=== PATIENT | female | born 1950 ===

== ENCOUNTER 2017-02-14 09:21 | Day surgery (SDC) | payer BC ==
[~2017-02-14 09:21] MED LIST: Acetaminophen TAB* 325 MG PO PRN; Buffered Lidocaine 1% SYRIN* 3 ML/SYR SYRINGE INTRADERM ONE
[2017-02-14] MEDS ORDERED: Midazolam* 1 MG/ML 2 ML VIAL (2 MG) ONE ×2 (11:26→11:45)
[2017-02-14 12:45] VITALS: BP 120/87
[2017-02-14] MEDS ORDERED: Cyclopentolate 1% OPTH.SOL* 2 ML BTL ONE (13:52)
[2017-02-14] MEDS ORDERED: Phenylephrine 2.5% OPTH.SOL* 2 ML BTL ONE (13:52)
[2017-02-14] MEDS ORDERED: Flurbiprofen 0.03% OPTH.SOL* 2.5 ML BTL ONE (13:52)
[2017-02-14] MEDS ORDERED: acetaZOLAMIDE TAB* 250 MG ONE (13:52)
[2017-02-14] MEDS ORDERED: Povidone Iodine 5% OPTH* 30 ML BTL ONE (13:52)
[2017-02-14] MEDS ORDERED: Lidocaine 1% MPF* 2 ML VIAL ONE (13:52)
[2017-02-14] MEDS ORDERED: Proparacaine 0.5% OPHTH.SOL* 15 ML BTL ONE (13:52)
[2017-02-14] MEDS ORDERED: Neomycin/Polymy/Dex OPTH.SUSP* MAXITROL 0.1% 5 ML ONE (13:52)
[2017-02-14] MEDS ORDERED: Lidocaine 2% EPI 1:200000 MPF* 20 ML VIAL ONE (13:52)
--- NOTE | 2017-02-14 15:50 | OP ---
DATE OF OPERATION: 02/14/2017 - [facility] DATE OF : 1950. SURGEON: Joey Harris M.D. PREOPERATIVE DIAGNOSIS: Cataract right eye. POSTOPERATIVE DIAGNOSIS: Cataract right eye. OPERATIVE PROCEDURE: Phacoemulsification right eye with IOL. DESCRIPTION OF PROCEDURE: The patient was brought to the operating room after being given 1/2% Alcaine with epinephrine drops in the preoperative area. The eye was prepped and draped in the usual sterile fashion. Sterile drape and eyelid speculum were placed. Again, topical 1/2% Alcaine with epinephrine was given. A paracentesis incision was made at the 9 o'clock position with the No.75 blade. Clear cornea incision 2.2 x 2.2-mm was created at the 12 o'clock position starting at the anterior limbus using the 2.2-mm keratome. The anterior chamber was irrigated with 0.4 mL of 1% non-preservative intracameral lidocaine and filled with DisCoVisc. A capsulorrhexis was completed using the cystotome and the Utrata forceps. Hydrodissection was performed with balanced salt solution. The lens nucleus was removed with the Phacoemulsification handpiece without incident. Cortex was removed with the irrigation-aspiration handpiece. The capsular bag was re-inflated using DisCoVisc and an [id number] 22.5 implant was inserted with the shooter. The irrigation-aspiration handpiece was used to remove all residual DisCoVisc. The eye was refilled with balanced salt solution and the wound checked and found to be watertight. Topical Maxitrol drops were given. [id number]/[facility] #: [id number] [facility]
== END 2017-02-14 12:37 | disposition home or self-care (01) ==
LOC: OREAST 09:21
PROVIDERS: ATTEND Specialist
DX: H25.11 Age-related nuclear cataract, right eye (principal); J44.9 Chronic obstructive pulmonary disease, unspecified; K21.9 Gastro-esophageal reflux disease without esophagitis; I10 Essential (primary) hypertension; Z87.891 Personal history of nicotine dependence; E66.9 Obesity, unspecified; Z68.42 Body mass index [BMI] 45.0-49.9, adult; E03.9 Hypothyroidism, unspecified
CPT/HCPCS: A9270-GY; J2250; V2632

== ENCOUNTER 2017-02-21 08:31 | Day surgery (SDC) | payer BC ==
[2017-02-21] MEDS ORDERED: Midazolam* 1 MG/ML 2 ML VIAL (2 MG) ONE (09:58)
[2017-02-21] MEDS ORDERED: fentaNYL* 50 MCG/ML 2 ML VIAL (100 MCG VIAL) ONE (09:58)
[2017-02-21 11:06] VITALS: BP 118/63
[2017-02-21] MEDS ORDERED: Acetaminophen TAB* 325 MG ONE (11:07)
[2017-02-21] MEDS ORDERED: Cyclopentolate 1% OPTH.SOL* 2 ML BTL ONE (12:47)
[2017-02-21] MEDS ORDERED: Lidocaine 1% MPF* 2 ML VIAL ONE (12:47)
[2017-02-21] MEDS ORDERED: Neomycin/Polymy/Dex OPTH.SUSP* MAXITROL 0.1% 5 ML ONE (12:47)
[2017-02-21] MEDS ORDERED: Flurbiprofen 0.03% OPTH.SOL* 2.5 ML BTL ONE (12:47)
[2017-02-21] MEDS ORDERED: Povidone Iodine 5% OPTH* 30 ML BTL ONE (12:47)
[2017-02-21] MEDS ORDERED: Proparacaine 0.5% OPHTH.SOL* 15 ML BTL ONE (12:47)
[2017-02-21] MEDS ORDERED: acetaZOLAMIDE TAB* 250 MG ONE (12:47)
[2017-02-21] MEDS ORDERED: Lidocaine 2% EPI 1:200000 MPF* 20 ML VIAL ONE (12:47)
[2017-02-21] MEDS ORDERED: Phenylephrine 2.5% OPTH.SOL* 2 ML BTL ONE (12:47)
--- NOTE | 2017-02-21 14:05 | OP ---
DATE OF OPERATION: 02/21/17 - [facility] DATE OF : [birth year] SURGEON: Joey Harris M.D. PREOPERATIVE DIAGNOSIS: Cataract, left eye. POSTOPERATIVE DIAGNOSIS: Cataract, left eye. OPERATIVE PROCEDURE: Phacoemulsification left eye with IOL. DESCRIPTION OF PROCEDURE: The patient was brought to the operating room after being given 1/2% Alcaine with epinephrine drops in the preoperative area. The eye was prepped and draped in the usual sterile fashion. Sterile drape and eyelid speculum were placed. Again, topical 1/2% Alcaine with epinephrine was given. A paracentesis incision was made at the 3 o'clock position with the No.75 blade. Clear cornea incision 2.2 x 2.2-mm was created at the 6 o'clock position starting at the anterior limbus using the 2.2-mm keratome. The anterior chamber was irrigated with 0.4 mL of 1% non-preservative intracameral lidocaine and filled with DisCoVisc. A capsulorrhexis was completed using the cystotome and the Utrata forceps. Hydrodissection was performed with balanced salt solution. The lens nucleus was removed with the Phacoemulsification handpiece without incident. Cortex was removed with the irrigation-aspiration handpiece. The capsular bag was re-inflated using DisCoVisc and an [id number] 23- diopter implant was inserted with the shooter. The irrigation-aspiration handpiece was used to remove all residual DisCoVisc. The eye was refilled with balanced salt solution and the wound checked and found to be watertight. Topical Maxitrol drops were given. [id number]/[facility] #: [id number] MTDD
== END 2017-02-21 11:16 | disposition home or self-care (01) ==
LOC: OREAST 08:31
PROVIDERS: ATTEND Specialist
DX: H25.12 Age-related nuclear cataract, left eye (principal); E03.9 Hypothyroidism, unspecified; J44.9 Chronic obstructive pulmonary disease, unspecified; Z85.3 Personal history of malignant neoplasm of breast
CPT/HCPCS: A9270-GY; J2250; J3010; V2632

== ENCOUNTER 2018-12-15 16:53 | Inpatient (IN) | payer MEDICARE, BC, OTHER ==
--- NOTE | 2018-12-15 17:31 | ED ---
GI/ HPI - HPI Summary HPI Summary: This patient is a 68 year old F presenting to [facility] accompanied by a woman with a chief complaint of worsening vomiting and diarrhea since this morning. The patient rates the pain 4/10 in severity. Symptoms aggravated by movement. Patient reports SOB, dry heaving, LUQ abd pain, CP, fatigue, abd edema, and dehydration. The patient is supposed to go in tomorrow for a sleep study. PMHX COPD, Hernia, Gallbladder removal. - History of Current Complaint Chief Complaint: EDChestPainROMI Time Seen by Provider: 12/15/18 17:15 Stated Complaint: NAUSEA Hx Obtained From: Patient Onset/Duration: Started Hours Ago Timing: Intermittent Pain Intensity: 4 Location of Pain: LUQ Associated Signs and Symptoms: Positive: Nausea, Vomiting, Diarrhea, Abdominal Pain, Chest Pain - Allergy/Home Medications Allergies/Adverse Reactions: Allergies Allergy/AdvReac Type Severity Reaction Status Date / Time Penicillins Allergy Severe Hives/Diff. Verified 12/15/18 16:58 Breathing/I tching Adhesive Tape Allergy Intermediate redness/rash Verified 02/21/17 09:09 on skin under tape PMH/Surg Hx/FS Hx/Imm Hx Endocrine/Hematology History: Reports: Hx Thyroid Disease Respiratory History: Reports: Hx Asthma - r/t COPD, Hx Chronic Obstructive Pulmonary Disease (COPD) GI History: Reports: Hx Gastroesophageal Reflux Disease, Hx Hiatal Hernia Musculoskeletal History: Reports: Hx Arthritis - hands, back Sensory History: Reports: Hx Cataracts - bilat, Hx Contacts or Glasses Denies: Hx Hearing Aid Opthamlomology History: Reports: Hx Cataracts - bilat, Hx Contacts or Glasses - Cancer History Hx Chemotherapy: Yes - Surgical History Surgery Procedure, Year, and Place: left breast removed for cancer 2010. gall bladder removed approx 2007. tubal ligation and appendectomy at 27 years old. 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 basil melanoma removed on left leg 2106. pre cancer skin removed from left forearm 11/2016. colonoscopy Hx Anesthesia Reactions: No Infectious Disease History: No Infectious Disease History: Denies: Traveled Outside the [place] in Last 30 Days - Family History Known Family History: Positive: Respiratory Disease - Social History Alcohol Use: Rare Substance Use Type: Reports: None Smoking Status (MU): Former Smoker Amount Used/How Often: smoked 25 years 1ppd Review of Systems Positive: Fatigue, Other - dehydration Positive: Chest Pain Positive: Shortness Of Breath Positive: Abdominal Pain, Vomiting, Diarrhea, Nausea, Other - dry-heaving Positive: Edema - abd All Other Systems Reviewed And Are Negative: Yes Physical Exam - Summary Physical Exam Summary: Appearance: The patient is tachypnic in no acute distress and in no acute pain. Skin: The skin is warm and dry and skin color reflects adequate perfusion. HEENT: The head is normocephalic and atraumatic. The pupils are equal and reactive. The conjunctivae are clear and without drainage. Nares are patent and without drainage. Mouth reveals moist mucous membranes and the throat is without erythema and exudate. The external ears are intact. The ear canals are patent and without drainage. The tympanic membranes are intact. Neck: The neck is supple with full range of motion and non-tender. There are no carotid bruits. There is no neck vein distension. Respiratory: Chest is non-tender. Lungs are clear to auscultation and breath sounds are symmetrical and equal. Cardiovascular: Heart is tachycardic. There is no murmur or rub auscultated. There is no peripheral edema and pulses are symmetrical and equal. Abdomen: The abdomen is tender in LUQ. There are normal bowel sounds heard in all four quadrants and there is no organomegaly palpated. Musculoskeletal: There is no back tenderness noted. Extremities are non-tender with full range of motion. There is good capillary refill. There is no peripheral edema or calf tenderness elicited. Neurological: Patient is alert and oriented to person, place and time. The patient has symmetrical motor strength in all four extremities. Cranial nerves are grossly intact. Deep tendon reflexes are symmetrical and equal in all four extremities. Psychiatric: The patient has an appropriate affect and does not exhibit any anxiety or depression Triage Information Reviewed: Yes Vital Signs On Initial Exam: Initial Vitals Temp Pulse Resp BP Pulse Ox 99.7 F 106 26 116/59 97 12/15/18 16:55 12/15/18 16:55 12/15/18 16:55 12/15/18 16:55 12/15/18 16:55 Vital Signs Reviewed: Yes Diagnostics - Vital Signs Vital Signs Temp Pulse Resp BP Pulse Ox 12/15/18 16:55 99.7 F 106 26 116/59 97 - Laboratory Result Diagrams: 12/15/18 18:03 12/15/18 18:03 Lab Statement: Any lab studies that have been ordered have been reviewed, and results considered in the medical decision making process. - CT Abd/Pelvis CT Interpretation Completed By: Radiologist Summary of CT Findings: No visible renal, ureteral or bladder calculi. ED physician has reviewed this report - EKG 17:07 Cardiac Rate: Tachycardia - 105 bpm EKG Rhythm: Sinus Tachycardia GIGU Course/Dx - Course Course Of Treatment: Ms. Luke presented to the emergency department with multiple vague complaints. She was tachycardic on arrival but afebrile. Labs were obtained and revealed a leukocytosis of 13.6. Her chest x-ray was negative. Her urine is still pending at this time. She was treated with IV fluids and antibiotics once her white blood cell count returned elevated and she met septic criteria. Initial IV fluids were started on arrival. The hospitalist service was contacted for admission. - Diagnoses Provider Diagnoses: Sepsis - Physician Notifications Discussed Care Of Patient With: Kay Olivera Time Discussed With Above Provider: 19:12 Instructed by Provider To: Admit As Inpatient - Critical Care Time Critical Care Time: 30-74 min Discharge - Sign-Out/Discharge Documenting (check all that apply): Patient Departure - admission Patient Received Moderate/Deep Sedation with Procedure: No - Discharge Plan Condition: Fair Disposition: ADMITTED TO [facility] Referrals: Arturo Coelho MD [Primary Care Provider] - - Billing Disposition and Condition Condition: FAIR Disposition: Admitted to [facility] - Attestation Statements Document Initiated by Rohan: Yes Documenting Scribe: Javon Garcia Provider For Whom Rohan is Documenting (Include Credential): Robel Rodrigues MD Scribe Attestation: Javon Fernandes, scribed for Robel Rodrigues MD on 12/15/18 at 2013. Scribe Documentation Reviewed: Yes Provider Attestation: The documentation as recorded by the Javon andersen accurately reflects the service I personally performed and the decisions made by Robel damon MD Status of Scribe Document: Viewed
[2018-12-15] MEDS ORDERED: NS 0.9% 1000 ML** 1,000 ML IV ONE ×2 (17:37→19:06)
[2018-12-15] MEDS ORDERED: Ondansetron INJ* 2 MG/ML VIAL IV ONE (18:04)
[2018-12-15 18:19] LABS: INR 0.99 (0.77-1.02)
[2018-12-15 18:22] LABS: ABS Basophils 0.1 10^3/ul (0-0.2); ABS Eosinophils 0 10^3/ul (0-0.6); ABS Lymphocytes 0.4 10^3/ul (1.0-4.8); ABS Monocytes 0.6 10^3/ul (0-0.8); ABS Neutrophils 12.5 10^3/ul (1.5-7.7); ABS Nucleated RBC 0 10^3/ul; Eosinophil % 0.2 %; Hematocrit 47 % (35-47); Hemoglobin 15.6 g/dl (12.0-16.0); Lymphocyte % 2.7 %; Mean Corpuscular HGB Conc 33 g/dl (31-36); Mean Corpuscular Hemoglobin 32 pg (27-31); Mean Corpuscular Volume 96 fL (80-97); Nucleated Red Blood Cells % 0; Platelet Count 304 10^3/ul (150-450); Red Blood Count 4.93 10^6/ul (4.00-5.40); Red Cell Distribution Width 14 % (10.5-15); White Blood Count 13.6 10^3/ul (3.5-10.8)
[2018-12-15] MEDS ORDERED: Albuterol/Ipratropium NEB.SOL* Albuterol 2.5 MG/Ipratropium 0.5 MG 3 ML ONE (18:25)
[2018-12-15 18:29] LABS: Albumin 4.1 g/dL (3.2-5.2); Albumin/Globulin Ratio 1.1 (1-3); BUN/Creatinine Ratio 28.8 (8-20); C Reactive Protein 10.52 mg/L (<8.01); Calcium 8.7 mg/dL (8.6-10.3); EGFR African American 108.4 (>60); EGFR Non-African American 89.6 (>60); Globulin 3.9 g/dL (2-4); Total Bilirubin 0.3 mg/dL (0.2-1.0)
[2018-12-15] MEDS ORDERED: Albuterol/Ipratropium NEB.SOL* Albuterol 2.5 MG/Ipratropium 0.5 MG 3 ML INH ONE (18:29)
[2018-12-15] MEDS ORDERED: Levofloxacin 750 MG IVPREMIX(* 750 MG/150 ML BAG IVPB ONE (19:12)
[2018-12-15] MEDS ORDERED: Albuterol 2.5 MG/3 ML NEB.SOL* (0.083%) INH PRN (20:39)
[2018-12-15] MEDS ORDERED: Ondansetron INJ* 2 MG/ML VIAL IV PRN (21:09)
[2018-12-15 22:08] LABS: Urine Appearance Cloudy; Urine Bacteria 1+ (Absent); Urine Bilirubin Negative (Negative); Urine Blood Negative (Negative); Urine Color Yellow; Urine Glucose Negative (Negative); Urine Ketones Negative (Negative); Urine Nitrite Negative (Negative); Urine Protein Negative (Negative); Urine Red Blood Cell Absent (Absent); Urine Specific Gravity 1.021 (1.010-1.030); Urine Squamous Epithelial Cell Present (Absent); Urine Urobilinogen Negative (Negative); Urine White Blood Cell 1+(6-10/hpf) (Absent)
[2018-12-15 22:13] LABS: Influenza A Molecular NEGATIVE (Negative); Influenza B Molecular NEGATIVE (Negative)
[2018-12-15] MEDS: Heparin VIAL(*) 5000 UNITS/ML VIAL (FIVE THOUSAND) SUBCUT SCH (22:59)
[2018-12-15] MEDS: NS 0.9% 1000 ML** 1,000 ML IV SCH (23:10)
[2018-12-15] MEDS: Acetaminophen TAB* 325 MG PO PRN (23:59)
[2018-12-16] MEDS: NS 0.9% 1000 ML** 1,000 ML IV SCH (01:19)
[2018-12-16] MEDS: Budesonide/Formote 80/4.5(NF) MDI INH SCH ×2 (03:39→07:45)
--- NOTE | 2018-12-16 03:56 | HP ---
CC: Dr. Coelho * HISTORY AND PHYSICAL: DATE OF ADMISSION: 12/15/18 PROVIDER: Ciara Garcia NP PRIMARY CARE PROVIDER: Dr. Coelho. ATTENDING PHYSICIAN WHILE IN THE HOSPITAL: Dr. Kay Olivera * (dictated by Ciara Garcia NP). CHIEF COMPLAINT: 1. Cough, congestion. 2. Vomiting, diarrhea and abdominal pain. HISTORY OF PRESENT ILLNESS: Ms. Luke is a 68-year-old female with a past medical history significant for left breast carcinoma, status post mastectomy, hypothyroid, GERD, basal cell carcinoma of the skin, who presented to the emergency room with complaints of vomiting and diarrhea that started this afternoon. The patient reports that she has had increased shortness of breath times 6 to 8 weeks, which she is currently being followed at outpatient and due to see a booster assembler in the near future. The patient reports that in the past week, she has had increased cough and congestion, and increased shortness of breath. She reports today that she went to the [facility] with her sister for her birthday and started not feeling well, had abdominal pain. The patient went to the bathroom and vomited and had diarrhea. She did this 3 times. Due to the vomiting and diarrhea, she was brought to the emergency room by her sister for further evaluation. While in the emergency room, the patient continued to have dry heaves and vomiting. She had routine lab work drawn. She was found to have a white blood cell count of 13.6. Chest x-ray was questionable for pneumonia. She did have a low-grade fever of 99.7 on admission. While in the emergency room, the patient did meet SIRS criteria with WBCs of 13.6, tachycardia, and tachypnea with suspected source of pneumonia, and the patient did receive fluid bolusing of 30 mL/kg. She did have a CT of the abdomen and pelvis, which had no acute findings. Due to her nausea and intractable vomiting as well as shortness of breath, cough, and congestions, we were asked to see and evaluate her for admission. PAST MEDICAL HISTORY: Significant for: 1. Left breast cancer, status post mastectomy. 2. Hypothyroid. 3. History of leg swelling. 4. GERD. 5. History of basal cell carcinoma. PAST SURGICAL HISTORY: 1. Cataract. 2. Cholecystectomy. 3. Left mastectomy. HOME MEDICATIONS: 1. Ambien 5 mg p.o. p.o. at night as needed for sleep. 2. Vitamin D 2000 units p.o. q.a.m. 3. Symbicort 2 puffs inhaled b.i.d. 4. Albuterol inhaler 2 puffs q.4 hours as needed for shortness of breath. 5. Spiriva inhaler 1 cap inhaled daily. 6. Potassium 20 mEq p.o. daily. 7. Omeprazole 20 mg p.o. daily. 8. Levothyroxine 125 mcg p.o. at 8 a.m. 9. Furosemide 40 mg p.o. q.a.m. ALLERGIES: She has allergy to PENICILLIN and ADHESIVE TAPE. FAMILY HISTORY: No reported history of coronary artery disease. Mother, sister , and brother with diabetes. Father and brother with skin cancer. Mother and daughter with breast cancer. SOCIAL HISTORY: The patient quit smoking in 2010, prior to this she smoked half a pack a day for approximately 30 years. She does report rare alcohol use. Denies any illicit drug use. She is . Surrogate decision maker in the event she is unable to make her own decisions is her daughter, Darian, her phone is [phone]. She is a full code. REVIEW OF SYSTEMS: The patient did report chills. Denies any loss of appetite. She does report some chest tightness prior to vomiting, it has relieved with vomiting. She does report cough. She denies any hemoptysis. She does report shortness of breath, worse over the last week. She does report nausea, vomiting, diarrhea, and abdominal pain. She denies any gross hematuria , dysuria, focal weakness or sensory loss. Denies any visual complaints, dysphagia, arthralgias, myalgias, rashes, lesions, or open sores. She does complain of generalized body aches. PHYSICAL EXAMINATION GENERAL: At this time, Ms. Luke is a 68-year-old female sitting on the stretcher in the emergency room. She appears to be uncomfortable with mild shortness of breath. VITAL SIGNS: Blood pressure 116/59, temperature of 99.7, heart rate 110, respirations are 20 to 26, O2 saturation 97% on room air. HEENT: Head is atraumatic and normocephalic. Eyes: EOMs are intact. Sclerae anicteric and not pale. Oral mucosa appeared to be dry. NECK: Supple. LUNGS: Diminished throughout bilaterally. No wheezes or rales. CARDIAC: S1 and S2. She is tachycardic. No murmurs, rubs, or gallops. ABDOMEN: Rounded, soft, slightly distended. Bowel sounds are hypoactive x4. EXTREMITIES: Pedal pulses are +2 bilaterally. She is able to able to move all 4 extremities with 5/5 strength. NEUROLOGIC: She is awake, alert, and oriented x3. Speech is clear. Thought process is intact. No gross focal deficits. SKIN: Intact. LABORATORY DATA AND DIAGNOSTIC STUDIES: WBCs are 13.6, RBCs 4.93, hemoglobin 15.6, hematocrit was 47, platelet count 304. INR 0.99. Sodium 139, potassium 4.0, chloride 104, carbon dioxide was 27, anion gap 8, BUN 19, creatinine 0.66, glucose was 119, lactic acid 2.0, calcium 8.7. ASTs were 17, ALTs were 18, alkaline phosphatase 64. Troponin was 0.00. C-reactive protein 10.52. Lipase was 24. Urine was yellow, cloudy, pH was 5.0, specific gravity 1.021. Urine protein, ketones, blood, nitrites, bilirubin, urobilinogen were all negative. Urine leukocyte esterase was 1+, wbc's were 1+, rbc's were absent, squamous epithelial cells were present, bacteria was present. Urine glucose was negative. Influenza A and B were both negative. She had a chest x-ray that is concerning for pneumonia. She had a CT of the abdomen and pelvis showed no visible renal, urethral, or bladder calculi. No acute finding. EKG showed sinus tachycardia at a rate of 105. ASSESSMENT AND PLAN: Ms. Luke is a 68-year-old female who presented to the emergency room with complaints of vomiting, diarrhea, and abdominal pain as well as shortness of breath and cough that is progressively worsening x1 week. She will be admitted under observation for: 1. Intractable nausea and vomiting. I suspect this is probably related to gastroenteritis with underlying pneumonia. She did receive IV hydration in the emergency room for a total of 30 mL/kg, as she did meet Sirs criteria with an elevated white count, tachycardia, and tachypnea. She was given Levaquin in the emergency room. The patient has been afebrile, but does report chills. We will continue on IV fluids at 75 cc per hour overnight. 2. Shortness of breath and cough. The patient does have a history of chronic obstructive pulmonary disease. We will continue on her inhalers and nebulizers. I will give her azithromycin and ceftriaxone. Her chest x-ray is concerning for pneumonia. The patient did have a low-grade fever in the emergency room of 100.4 temporally. She did have an elevated white count of 13.6. Given this, I will continue with ceftriaxone and azithromycin. She did have a urine for Legionella and Streptococcus pneumoniae sent. She has a sputum culture that is currently pending. 3. Chronic obstructive pulmonary disease. We will continue on Spiriva, albuterol, and Symbicort as previously prescribed. 4. Gastroesophageal reflux disease. She will continue on omeprazole 20 mg p.o. daily. 5. Hypothyroidism. She will continue on levothyroxine 125 mcg p.o. daily. 6. FEN. The patient can have a clear liquid diet and advance as tolerated. 7. DVT prophylaxis. I will place her on heparin subcu. 8. Code status. She is a full code. TIME SPENT: Time spent on this admission was 60 minutes, greater than half that time was spent [id number] with the patient obtaining my history and physical, the other half of the time was spent going over my plan of care and implementing my plan of care. I have discussed this with my attending, Dr. Kay Olivera, she is in agreement with my plan. CIARA GARCIA, NERI [id number]/[facility] #: [id number] GIULIA
[2018-12-16] MEDS: Heparin VIAL(*) 5000 UNITS/ML VIAL (FIVE THOUSAND) SUBCUT SCH ×3 (05:33→20:45)
[2018-12-16] MEDS: Levothyroxine TAB* 125 MCG TAB PO SCH (05:33)
[2018-12-16 06:25] LABS: ABS Basophils 0.1 10^3/ul (0-0.2); ABS Eosinophils 0 10^3/ul (0-0.6); ABS Lymphocytes 0.8 10^3/ul (1.0-4.8); ABS Monocytes 0.3 10^3/ul (0-0.8); ABS Nucleated RBC 0 10^3/ul; Eosinophil % 0.1 %; Hematocrit 41 % (35-47); Hemoglobin 13.2 g/dl (12.0-16.0); Lymphocyte % 9.4 %; Mean Corpuscular HGB Conc 33 g/dl (31-36); Mean Corpuscular Hemoglobin 32 pg (27-31); Mean Corpuscular Volume 96 fL (80-97); Mean Platelet Volume 7.8 fL (7.4-10.4); Nucleated Red Blood Cells % 0.1; Platelet Count 232 10^3/ul (150-450); Red Cell Distribution Width 14 % (10.5-15); White Blood Count 8.2 10^3/ul (3.5-10.8)
[2018-12-16 06:46] LABS: BUN/Creatinine Ratio 22.2 (8-20); Calcium 7.3 mg/dL (8.6-10.3); EGFR African American 136.7 (>60); Potassium 3.1 mmol/L (3.5-5.0)
[2018-12-16] MEDS ORDERED: KCL 20 MEQ/100 ML IVPREMIX* 20 MEQ/100 ML BAG IV ONE (07:34)
[2018-12-16] MEDS: Tiotropium CAP.INH* CAP.INH/18 MCG (USE ORDER SET !) INH SCH (07:43)
[2018-12-16 07:57] LABS: Magnesium 1.3 mg/dL (1.9-2.7)
[2018-12-16] MEDS ORDERED: NS 0.9% 1000 ML** 1,000 ML IV SCH (08:00)
[2018-12-16] MEDS ORDERED: Potassium Chlor TAB* 20 MEQ TAB.ER PO ONE (08:00)
[2018-12-16] MEDS: cefTRIAXone(*) 1 GM in NS 0.9% 50 ML* 50 ML IVPB SCH (08:47)
[2018-12-16] MEDS: Pantoprazole TAB * 40 MG TAB PO SCH (08:49)
[2018-12-16] MEDS: Cholecalciferol TAB* 1000 UNITS PO SCH (08:49)
[2018-12-16] MEDS ORDERED: Spiriva Inhaler DEVICE* 1 EACH DEVICE INH ONE (09:00)
[2018-12-16] MEDS ORDERED: Potassium Chlor TAB* 20 MEQ TAB.ER PO SCH (09:00)
[2018-12-16] MEDS: Azithromycin IV(*) 500 MG in NS 0.9% 250 ML* 250 ML IVPB SCH (09:32)
[2018-12-16] MEDS: Acetaminophen TAB* 325 MG PO PRN (11:25)
[2018-12-16] MEDS ORDERED: Magnesium Sulfate IV* 3 GM in NS 0.9% 100 ML* 100 ML IVPB ONE (11:45)
--- NOTE | 2018-12-16 11:56 | PN ---
Subjective Date of Service: 12/16/18 Interval History: Pt reports continued diarrhea "watery stools" reporting frequent stools every hour. She reports generalized abdominal cramping with stools. Mild nausea but no further vomiting. She reports she feels a little better this afternoon. No further fevers or chills today. No appetite but has been drinking water. Objective Active Medications: Acetaminophen (Tylenol Tab*) 650 mg PO Q4H PRN PRN Reason: FEVER/PAIN Last Admin: 12/16/18 11:25 Dose: 650 mg Albuterol (Ventolin 2.5 Mg/3 Ml Neb.Rosemary*) 2.5 mg INH [id number] AWAKE PRN PRN Reason: sob/wheezing Budesonide/Formoterol Fumarate (Symbicort 80/4.5 (Nf)) 2 puff INH BID [facility] Last Admin: 12/16/18 07:45 Dose: Not Given Cholecalciferol (Vitamin D Tab*) 2,000 units PO QAM [facility] Last Admin: 12/16/18 08:49 Dose: 2,000 units Heparin Sodium (Porcine) (Heparin Vial(*)) 5,000 units SUBCUT Q8HR [facility] Last Admin: 12/16/18 05:33 Dose: 5,000 units Sodium Chloride (Ns 0.9% 1000 Ml) 1,000 mls @ 1,000 mls/hr IV PER RATE [facility] Stop: 12/16/18 21:44 Last Admin: 12/16/18 01:19 Dose: 1,000 mls/hr Ceftriaxone Sodium 1 gm/ (Sodium Chloride) 50 mls @ 200 mls/hr IVPB Q24H [facility] Last Admin: 12/16/18 08:47 Dose: 200 mls/hr Azithromycin 500 mg/ Sodium (Chloride) 250 mls @ 250 mls/hr IVPB Q24H [facility] Last Admin: 12/16/18 09:32 Dose: 250 mls/hr Sodium Chloride (Ns 0.9% 1000 Ml) 1,000 mls @ 100 mls/hr IV PER RATE [facility] Stop: 12/16/18 17:59 Last Admin: 12/16/18 08:46 Dose: 100 mls/hr Magnesium Sulfate 3 gm/ Sodium (Chloride) 106 mls @ 53 mls/hr IVPB ONCE ONE Stop: 12/16/18 13:44 Levothyroxine Sodium (Synthroid Tab*) 125 mcg PO 0600 [facility] Last Admin: 12/16/18 05:33 Dose: 125 mcg Ondansetron HCl (Zofran Inj*) 4 mg IV Q6H PRN PRN Reason: NAUSEA Pantoprazole Sodium (Protonix Tab*) 40 mg PO QAM [facility] Last Admin: 12/16/18 08:49 Dose: 40 mg Tiotropium [place] (Spiriva Cap.Inh*) 1 cap INH QAM [facility] Last Admin: 12/16/18 07:43 Dose: 1 cap Vital Signs - 8 hr 12/16/18 12/16/18 08:17 11:38 Temperature 99.4 F 98.9 F Pulse Rate 112 104 Respiratory 24 18 Rate Blood Pressure 99/66 109/48 (mmHg) O2 Sat by Pulse 98 96 Oximetry Oxygen Devices in Use Now: Nasal Cannula Appearance: obese female laying in bed A+O x3 in NAD, appears nontoxic Eyes: No Scleral Icterus, PERRLA Neck: NL Appearance and Movements; NL JVP Respiratory: Symmetrical Chest Expansion and Respiratory Effort, Clear to Auscultation Cardiovascular: NL Sounds; No Murmurs; No JVD, RRR, No Edema Abdominal: NL Sounds; No Tenderness; No Distention, - - obese Extremities: No Edema, No Clubbing, Cyanosis Skin: No Rash or Ulcers Neurological: Alert and Oriented x 3, NL Sensation, NL Gait, NL Muscle Strength and Tone Lines/Tubes/Other Access: Clean, Dry and Intact Peripheral IV Nutrition: Taking PO's Result Diagrams: 12/16/18 06:07 12/16/18 06:07 Microbiology and Other Data: Microbiology 12/15/18 21:54 Legionella Urinary Antigen - Final Urine Negative Legionella Antigen Streptococcus pneumoniae Ag Screen - Final Negative S. pneumo Antigen 12/15/18 21:30 Influenza Types A,B Antigen - Final Nasal Specimen received for Influenza A/B Molecular testing Assess/Plan/Problems-Billing Assessment: Ms. Luke is a 68 you female with a PMH of hypothyroid, left breast ca s/p mastectomy, hypothyroid, GERD, hx of usp tobacco abuse who presented on 12/15 with c/o of vomiting, diarrhea and abdominal pain as well as SOB and cough that progressively worsened the last week. - Patient Problems (1) Nausea vomiting and diarrhea Comment: - suspect gastroenteritis - Vomiting resolved, continues to have frequent diarrhea - Continues to tachy but improving, bp stable but soft, fever 102 overnight now low grade temp -> lactic x2 negative -> continue IVFs. - Send stool cx, awaiting blood cx (2) Cough Comment: - chest xray negative for pna - concern on admission for possible pna with recnet hx of cough and sputum production. Lower suspicion for PNA but possible COPD exacerbation which appears to be improving. Little to no sputum production. Some wheezes but has this at her baseline. - continue home inhalers - continue azithro/ceft for copd exacerbation. Hold off on steroids at this time. (3) Hypothyroid Comment: continue synthroid (4) Full code status (5) DVT prophylaxis Comment: HSQ Status and Disposition: OBV. Possible DC to home tomorrow
[2018-12-16] MEDS: Fluticasone-Salmeterol 100-50* DISKUS INH SCH (21:04)
[2018-12-17] MEDS: Acetaminophen TAB* 325 MG PO PRN ×2 (03:30→23:38)
[2018-12-17] MEDS: Heparin VIAL(*) 5000 UNITS/ML VIAL (FIVE THOUSAND) SUBCUT SCH ×3 (05:07→20:08)
[2018-12-17] MEDS: Levothyroxine TAB* 125 MCG TAB PO SCH (05:08)
[2018-12-17 07:10] LABS: ABS Basophils 0 10^3/ul (0-0.2); ABS Eosinophils 0 10^3/ul (0-0.6); ABS Lymphocytes 1.6 10^3/ul (1.0-4.8); ABS Monocytes 0.7 10^3/ul (0-0.8); ABS Neutrophils 5.7 10^3/ul (1.5-7.7); ABS Nucleated RBC 0 10^3/ul; Eosinophil % 0.1 %; Hematocrit 39 % (35-47); Hemoglobin 13.1 g/dl (12.0-16.0); Lymphocyte % 19.9 %; Mean Corpuscular HGB Conc 33 g/dl (31-36); Mean Corpuscular Hemoglobin 32 pg (27-31); Mean Corpuscular Volume 96 fL (80-97); Mean Platelet Volume 8.1 fL (7.4-10.4); Nucleated Red Blood Cells % 0.1; Platelet Count 202 10^3/ul (150-450); Red Blood Count 4.11 10^6/ul (4.00-5.40); Red Cell Distribution Width 14 % (10.5-15)
[2018-12-17 07:40] LABS: BUN/Creatinine Ratio 9.6 (8-20); Calcium 7.9 mg/dL (8.6-10.3); EGFR African American 142.8 (>60); Potassium 3.1 mmol/L (3.5-5.0)
[2018-12-17] MEDS ORDERED: Potassium Chlor TAB* 20 MEQ TAB.ER PO ONE (07:59)
[2018-12-17] MEDS: Tiotropium CAP.INH* CAP.INH/18 MCG (USE ORDER SET !) INH SCH (08:09)
[2018-12-17] MEDS: Fluticasone-Salmeterol 100-50* DISKUS INH SCH ×3 (08:09→20:36)
[2018-12-17 08:20] LABS: Magnesium 2.3 mg/dL (1.9-2.7)
[2018-12-17] MEDS: Pantoprazole TAB * 40 MG TAB PO SCH (09:34)
[2018-12-17] MEDS: Cholecalciferol TAB* 1000 UNITS PO SCH (09:34)
[2018-12-17] MEDS: cefTRIAXone(*) 1 GM in NS 0.9% 50 ML* 50 ML IVPB SCH (09:34)
[2018-12-17] MEDS: KCL 20 MEQ/100 ML IVPREMIX* 20 MEQ/100 ML BAG IV SCH ×2 (10:33→13:42)
[2018-12-17] MEDS: Azithromycin IV(*) 500 MG in NS 0.9% 250 ML* 250 ML IVPB SCH (11:48)
[2018-12-17 13:44] LABS: C Reactive Protein 66.63 mg/L (<8.01)
[2018-12-17] MEDS ORDERED: KCL 20 MEQ/100 ML IVPREMIX* 20 MEQ/100 ML BAG IV ONE (14:00)
--- NOTE | 2018-12-17 14:24 | PN ---
Subjective Date of Service: 12/17/18 Interval History: Patient reports she feels a little better today with less diarrhea reporting 2 loose stools today, dry heaved this morning but last night felt musch better able to keep clear liquid diet down. She woke up in the night a few times having a loose water stool. But overall feels she is improving. She continues to have LUQ tenderness and generalized abdominal bloating. She reports she has developed a productive cough overnight bring up some white sputum. She denies SOB but stated she felt wheezy earlier. Is able to walk to the bathroom independently No fevers or chills Objective Active Medications: Acetaminophen (Tylenol Tab*) 650 mg PO Q4H PRN PRN Reason: FEVER/PAIN Last Admin: 12/17/18 03:30 Dose: 650 mg Albuterol (Ventolin 2.5 Mg/3 Ml Neb.Rosemary*) 2.5 mg INH [id number] AWAKE PRN PRN Reason: sob/wheezing Last Admin: 12/16/18 17:38 Dose: 2.5 mg Cholecalciferol (Vitamin D Tab*) 2,000 units PO QAM [facility] Last Admin: 12/17/18 09:34 Dose: 2,000 units Heparin Sodium (Porcine) (Heparin Vial(*)) 5,000 units SUBCUT Q8HR [facility] Last Admin: 12/17/18 05:07 Dose: 5,000 units Ceftriaxone Sodium 1 gm/ (Sodium Chloride) 50 mls @ 200 mls/hr IVPB Q24H [facility] Last Admin: 12/17/18 09:34 Dose: 200 mls/hr Azithromycin 500 mg/ Sodium (Chloride) 250 mls @ 250 mls/hr IVPB Q24H [facility] Last Admin: 12/17/18 11:48 Dose: 250 mls/hr Potassium Chloride (Potassium Chloride 20 Meq/100 Ml Ivpremix*) 20 meq in 100 mls @ 50 mls/hr IV ONCE ONE Stop: 12/17/18 15:59 Levothyroxine Sodium (Synthroid Tab*) 125 mcg PO 0600 [facility] Last Admin: 12/17/18 05:08 Dose: 125 mcg Ondansetron HCl (Zofran Inj*) 4 mg IV Q6H PRN PRN Reason: NAUSEA Pantoprazole Sodium (Protonix Tab*) 40 mg PO QAM [facility] Last Admin: 12/17/18 09:34 Dose: 40 mg Fluticasone/Salmeterol (Advair Diskus 100-50*) 1 puff INH BID [facility] Last Admin: 12/17/18 08:09 Dose: 1 puff Tiotropium [place] (Spiriva Cap.Inh*) 1 cap INH QAM [facility] Last Admin: 12/17/18 08:09 Dose: 1 cap Vital Signs - 8 hr 12/17/18 12/17/18 12/17/18 07:31 08:20 11:05 Temperature 97.9 F 98.3 F Pulse Rate 89 90 91 Respiratory 20 18 20 Rate Blood Pressure 110/63 101/59 (mmHg) O2 Sat by Pulse 98 96 96 Oximetry Oxygen Devices in Use Now: None Appearance: morbidly obese female laying in bed in nad, A+O x3 Eyes: No Scleral Icterus, PERRLA Ears/Nose/Mouth/Throat: NL Teeth, Lips, Gums, Mucous Membranes Moist Neck: NL Appearance and Movements; NL JVP Respiratory: Symmetrical Chest Expansion and Respiratory Effort, Clear to Auscultation, - - slightly diminished, no wheezing noted Cardiovascular: NL Sounds; No Murmurs; No JVD, RRR, No Edema Abdominal: - - obese, slightly distended in upper quads, mild tenderness to LUQ , no guarding, NL BS. Extremities: No Edema, No Clubbing, Cyanosis Skin: No Rash or Ulcers, No Nodules or Sclerosis Neurological: Alert and Oriented x 3, NL Sensation, NL Gait, NL Muscle Strength and Tone Lines/Tubes/Other Access: Clean, Dry and Intact Peripheral IV Nutrition: Taking PO's Result Diagrams: 12/17/18 06:17 12/17/18 06:17 Microbiology and Other Data: Microbiology 12/15/18 21:54 Legionella Urinary Antigen - Final Urine Negative Legionella Antigen Streptococcus pneumoniae Ag Screen - Final Negative S. pneumo Antigen 12/15/18 21:30 Influenza Types A,B Antigen - Final Nasal Specimen received for Influenza A/B Molecular testing Assess/Plan/Problems-Billing Assessment: Ms. Luke is a 68 you female with a PMH of hypothyroid, left breast ca s/p mastectomy, hypothyroid, GERD, hx of half-way tobacco abuse who presented on 12/15 with c/o of vomiting, diarrhea and abdominal pain as well as SOB and cough that progressively worsened the last week. - Patient Problems (1) Nausea vomiting and diarrhea Comment: - suspect gastroenteritis - could be pneumonia? I have higher suspcion for a gastroenteritis but she now is coughing - Vomiting resolved, diarrhea improving - afebrile overnight, leukocytosis resolved - Stool cx pending, urine cx negative, blood cx NTD (2) Cough Comment: - chest xray negative for pna on admission now has increased cough and sputum - repeat chest xray, send sputum cx. - continue home inhalers and nebs - continue azithro/ceft (3) Electrolyte abnormality Comment: - potassium low 3.1 - give replacement - repeat in am. Mg+ wnl (4) Hypothyroid Comment: continue synthroid (5) Full code status (6) DVT prophylaxis Comment: HSQ Status and Disposition: OBV. Possible DC to home tomorrow
[2018-12-18 05:55] LABS: ABS Basophils 0 10^3/ul (0-0.2); ABS Eosinophils 0.1 10^3/ul (0-0.6); ABS Lymphocytes 1.6 10^3/ul (1.0-4.8); ABS Monocytes 0.6 10^3/ul (0-0.8); ABS Neutrophils 5.3 10^3/ul (1.5-7.7); ABS Nucleated RBC 0 10^3/ul; Eosinophil % 1.6 %; Hematocrit 37 % (35-47); Hemoglobin 12.3 g/dl (12.0-16.0); Lymphocyte % 21.2 %; Mean Corpuscular HGB Conc 33 g/dl (31-36); Mean Corpuscular Hemoglobin 31 pg (27-31); Mean Corpuscular Volume 95 fL (80-97); Mean Platelet Volume 7.8 fL (7.4-10.4); Nucleated Red Blood Cells % 0; Platelet Count 191 10^3/ul (150-450); Red Blood Count 3.93 10^6/ul (4.00-5.40); Red Cell Distribution Width 14 % (10.5-15); White Blood Count 7.7 10^3/ul (3.5-10.8)
[2018-12-18] MEDS: Levothyroxine TAB* 125 MCG TAB PO SCH (06:01)
[2018-12-18] MEDS: Heparin VIAL(*) 5000 UNITS/ML VIAL (FIVE THOUSAND) SUBCUT SCH (06:01)
[2018-12-18 06:12] LABS: BUN/Creatinine Ratio 16.3 (8-20); Calcium 8.1 mg/dL (8.6-10.3); EGFR African American 177.8 (>60); EGFR Non-African American 146.9 (>60); Potassium 3.6 mmol/L (3.5-5.0)
[2018-12-18] MEDS ORDERED: Potassium Chlor TAB* 20 MEQ TAB.ER PO ONE (07:40)
[2018-12-18] MEDS: Cholecalciferol TAB* 1000 UNITS PO SCH (08:00)
[2018-12-18] MEDS: Pantoprazole TAB * 40 MG TAB PO SCH (08:02)
[2018-12-18] MEDS: cefTRIAXone(*) 1 GM in NS 0.9% 50 ML* 50 ML IVPB SCH (08:02)
[2018-12-18] MEDS: Fluticasone-Salmeterol 100-50* DISKUS INH SCH (08:12)
[2018-12-18] MEDS: Tiotropium CAP.INH* CAP.INH/18 MCG (USE ORDER SET !) INH SCH (08:12)
[2018-12-18] MEDS: Azithromycin IV(*) 500 MG in NS 0.9% 250 ML* 250 ML IVPB SCH (10:20)
[2018-12-18 12:25] VITALS: BP 125/83
--- NOTE | 2018-12-18 13:36 | DCNOTE ---
Subjective Date of Service: 12/18/18 Interval History: Patient reports she is feeling much better and would like to go home. No further diarrhea or dry heaving - tolerating diet well. Objective Active Medications: Acetaminophen (Tylenol Tab*) 650 mg PO Q4H PRN PRN Reason: FEVER/PAIN Last Admin: 12/17/18 23:38 Dose: 650 mg Albuterol (Ventolin 2.5 Mg/3 Ml Neb.Rosemary*) 2.5 mg INH [id number] AWAKE PRN PRN Reason: sob/wheezing Last Admin: 12/16/18 17:38 Dose: 2.5 mg Cholecalciferol (Vitamin D Tab*) [facility] [place] Last Admin: 12/18/18 08:00 Dose: 2,000 units Heparin Sodium (Porcine) (Heparin Vial(*)) 5,000 units SUBCUT Q8HR [facility] Last Admin: 12/18/18 06:01 Dose: 5,000 units Azithromycin 500 mg/ Sodium (Chloride) 250 mls @ 250 mls/hr IVPB Q24H [facility] Last Admin: 12/18/18 10:20 Dose: 250 mls/hr Levothyroxine Sodium (Synthroid Tab*) 125 mcg PO 0600 [facility] Last Admin: 12/18/18 06:01 Dose: 125 mcg Ondansetron HCl (Zofran Inj*) 4 mg IV Q6H PRN PRN Reason: NAUSEA Pantoprazole Sodium (Protonix Tab*) [facility] [place] Last Admin: 12/18/18 08:02 Dose: 40 mg Fluticasone/Salmeterol (Advair Diskus 100-50*) 1 puff INH BID [facility] Last Admin: 12/18/18 08:12 Dose: 1 puff Tiotropium [place] (Spiriva Cap.Inh*) 1 cap INH QAM [facility] Last Admin: 12/18/18 08:12 Dose: 1 cap Vital Signs - 8 hr 12/18/18 12/18/18 12/18/18 08:00 08:16 08:21 Temperature 97.9 F Pulse Rate 78 87 Respiratory 22 18 24 Rate Blood Pressure 93/56 (mmHg) O2 Sat by Pulse 94 93 Oximetry 12/18/18 11:48 Temperature 98.7 F Pulse Rate 92 Respiratory 20 Rate Blood Pressure 125/83 (mmHg) O2 Sat by Pulse 95 Oximetry Oxygen Devices in Use Now: None Appearance: A+O x3 in NAD Eyes: PERRLA Respiratory: Symmetrical Chest Expansion and Respiratory Effort, Clear to Auscultation Cardiovascular: NL Sounds; No Murmurs; No JVD, RRR, No Edema Abdominal: NL Sounds; No Tenderness; No Distention, - - obese Extremities: No Edema Neurological: Alert and Oriented x 3, NL Sensation, NL Gait, NL Muscle Strength and Tone Lines/Tubes/Other Access: Clean, Dry and Intact Peripheral IV Nutrition: Taking PO's Result Diagrams: 12/18/18 05:41 12/18/18 05:41 Microbiology and Other Data: Microbiology 12/15/18 21:54 Legionella Urinary Antigen - Final Urine Negative Legionella Antigen Streptococcus pneumoniae Ag Screen - Final Negative S. pneumo Antigen 12/15/18 21:30 Influenza Types A,B Antigen - Final Nasal Specimen received for Influenza A/B Molecular testing Assess/Plan/Problems-Billing Assessment: Ms. Luke is a 68 you female with a PMH of hypothyroid, left breast ca s/p mastectomy, hypothyroid, GERD, hx of prison tobacco abuse who presented on 12/15 with c/o of vomiting, diarrhea and abdominal pain as well as SOB and cough that progressively worsened the last week. - Patient Problems (1) Nausea vomiting and diarrhea Comment: - suspect gastroenteritis - Vomiting resolved, diarrhea resolved - afebrile overnight, leukocytosis resolved - Stool cx pending, urine cx negative, blood cx NTD (2) Cough Comment: - chest xray negative for pna on admission now has increased cough and sputum - repeat chest xray normal - continue home inhalers and nebs - DC azithro/ceft (3) Electrolyte abnormality Comment: replaced (4) Hypothyroid Comment: continue synthroid (5) Full code status (6) DVT prophylaxis Comment: HSQ Status and Disposition: OBV. DC to home today
--- NOTE | 2018-12-18 21:16 | DS ---
CC: Dr. Coelho * DISCHARGE SUMMARY: DATE OF ADMISSION: 12/15/18 DATE OF DISCHARGE: 12/18/18 PROVIDER: Uli Frye NP ATTENDING PHYSICIAN: Dr. Russell * (report dictated by Uli Frye NP) PRIMARY CARE PROVIDER: Dr. Coelho DISCHARGE DIAGNOSES: 1. Nausea, vomiting, diarrhea, abdominal pain, thought to be secondary to viral gastroenteritis versus food-borne illness. . 2. Cough with congestion, possibly viral or 2nd to aspiration - resolved. 3. Electrolyte abnormalities. Replacements of magnesium and potassium were given throughout hospitalization. HISTORY OF PRESENT ILLNESS AND HOSPITAL COURSE: Please see history and physical by Ciara Garcia NP for full admission details, but in summary, this is a 68-year- old female with a past medical history significant for left breast carcinoma, status post mastectomy; hypothyroidism; GERD; basal cell carcinoma of the skin and morbid obesity, who presented to the emergency department with complaints of vomiting and diarrhea that started that afternoon. The patient reported that she was at the [employer] for her birthday and ate at the buffet and shortly after, she developed nausea, vomiting, and copious amounts of diarrhea. The patient does report prior to going to the [employer], her stomach felt a little "off." The patient's daughter transported her to the emergency department where she continued to have dry heaves, vomiting and diarrhea. She also complained of a cough and congestion with increased shortness of breath. Chest x-ray did not read pneumonia but on admission there was a question of pneumonia. She did meet for SIRS criteria with the white blood cell count of 13.6, tachycardia and tachypnea and did receive appropriate fluid bolus as well as, she underwent a CT scan of the abdomen and pelvis which showed no acute findings. She was admitted to the hospitalist service for intractable nausea, vomiting and diarrhea. The patient did have cramping abdominal pain for the first 1 to 2 days with copious amounts of diarrhea. Over the first 12 hours, her nausea and vomiting did resolve. Over the past 36 hours, the patient has greatly improved. Today her diarrhea has pretty much resolved, now she is having soft brown loose stools instead of watery stools and these have greatly decreased to just twice today. Her abdominal pain has resolved. Stool culture was unremarkable. Her blood culture is negative. Urine culture negative. Legionella and S. pneumoniae urinary antigens were negative. In regard to this questionable pneumonia, the patient did have a repeat chest x- ray which was negative. Her cough has improved. Possibly secondary to aspiration. She has been oxygenating well on room air with no noted wheezing. She did have a sputum culture today which is pending at the time of dictation. This should be followed up with the primary care doctor. Please note the patient did have a max temp of 102.3 the evening of admission and has remained afebrile since. Today, the patient has been ambulating around the unit on room air with a steady gait. PT performed the stairs with her to make sure she get into her home which she did well with. Overall, the patient reports that she feels close to her baseline and is ready for discharge home. The did have electrolyte replacement with magnesium and potassium which has resolved today. DISCHARGE MEDICATIONS: 1. Ambien 5 mg p.o. q.p.m. p.r.n. 2. Vitamin D 2000 units p.o. q.a.m. 3. Symbicort 80/4.5 two puffs INH b.i.d. 4. Albuterol 2 puffs INH q.4 hours p.r.n. 5. Spiriva inhaler 1 cap INH q.a.m. 6. Potassium chloride 20 mEq p.o. q.a.m. 7. Omeprazole 20 mg p.o. q.a.m. 8. Synthroid 125 mcg p.o. daily. DISCHARGE PLAN: 1. Follow up with primary care provider within 1 week. 2. If the primary could please follow up on these pending sputum culture. Low suspicion for pneumonia with 2 negative chest x-rays. Please note that the patient was treated with a course of azithromycin and ceftriaxone on admission. 3. The patient is stable for discharge to home. She was encouraged to continue increase fluid intake and if she has any worsening or concerning symptoms, to call her primary or return to the emergency department. TIME SPENT: Approximately 60 minutes was spent on this discharge. If you have any questions regarding this patient's hospitalization do not hesitate to call me. Our [facility]'s office number is [phone]. ULI FRYE, [place] [id number]/[facility] #: [id number] GIULIA
== END 2018-12-18 14:33 | disposition home or self-care (01) | DRG 871 ==
LOC: ED 16:53 → MEDTELE 20:39 → OBSVTOIN 12-16 12:00 → MEDTELE 12-17 09:24
PROVIDERS: ADMIT Nurse Practitioner; ATTEND Hospitalist
DX: A41.9 Sepsis, unspecified organism (principal); J69.0 Pneumonitis due to inhalation of food and vomit; A08.4 Viral intestinal infection, unspecified; E03.9 Hypothyroidism, unspecified; K21.9 Gastro-esophageal reflux disease without esophagitis; E66.01 Morbid (severe) obesity due to excess calories; E87.6 Hypokalemia; J44.9 Chronic obstructive pulmonary disease, unspecified; K44.9 Diaphragmatic hernia without obstruction or gangrene; M19.042 Primary osteoarthritis, left hand; M19.041 Primary osteoarthritis, right hand; M46.90 Unspecified inflammatory spondylopathy, site unspecified; E83.42 Hypomagnesemia; E86.0 Dehydration; Z90.49 Acquired absence of other specified parts of digestive tract; Z91.048 Other nonmedicinal substance allergy status; Z88.0 Allergy status to penicillin; Z90.12 Acquired absence of left breast and nipple; Z90.89 Acquired absence of other organs; Z83.6 Family history of other diseases of the respiratory system; Z87.891 Personal history of nicotine dependence; Z98.49 Cataract extraction status, unspecified eye; Z82.49 Family history of ischemic heart disease and other diseases of the circulatory system; Z83.3 Family history of diabetes mellitus; Z80.8 Family history of malignant neoplasm of other organs or systems; Z80.3 Family history of malignant neoplasm of breast; Z85.3 Personal history of malignant neoplasm of breast; Z98.51 Tubal ligation status; Z85.820 Personal history of malignant melanoma of skin
CPT/HCPCS: 36415; 71045; 71046; 74176; 80048; 80053; 81003; 81015; 83605; 83690; 83735; 84145; 84484; 85025; 85610; 86140; 87040; 87045; 87046; 87070; 87086; 87205; 87899; 94640; 99285; A9270-GY; G8978-GP-CI; G8979-GP-CI; G8980-GP-CI; J0456; J0696; J1644; J2405; J3475; J3480

== ENCOUNTER 2019-02-14 20:03 | Emergency (ER) | payer MEDICARE, BC, OTHER ==
[2019-02-14 20:12] VITALS: BP 118/70
--- NOTE | 2019-02-14 20:55 | UC ---
Skin Complaint HPI - HPI Summary HPI Summary: Was stung by something on right lower back, painful, red, swollen. - History of Current Complaint Chief Complaint: UCSkin Time Seen by Provider: 02/14/19 20:46 Stated Complaint: BACK PAIN Hx Obtained From: Patient ?: No Onset/Duration: Sudden Onset, Lasting Days - 2 Skin Exposure Onset/Duration: Days Ago Pain Intensity: 5 - Allergy/Home Medications Allergies/Adverse Reactions: Allergies Allergy/AdvReac Type Severity Reaction Status Date / Time Penicillins Allergy Severe Hives/Diff. Verified 02/14/19 20:12 Breathing/I tching Adhesive Tape Allergy Intermediate redness/rash Verified 02/14/19 20:12 on skin under tape PMH/Surg Hx/FS Hx/Imm Hx - Surgical History Surgical History: Yes Surgery Procedure, Year, and Place: left breast removed for cancer 2010. gall bladder removed approx 2007. tubal ligation and appendectomy at 27 years old. 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 basil melanoma removed on left leg 2106. pre cancer skin removed from left forearm 11/2016. colonoscopy - Family History Known Family History: Positive: Respiratory Disease - Social History Alcohol Use: Rare Substance Use Type: None Smoking Status (MU): Former Smoker Amount Used/How Often: smoked 25 years 1ppd When Did the Patient Quit Smoking/Using Tobacco: quit 09/01/2011 - Immunization History Most Recent Influenza Vaccination: 2017 Most Recent Pneumonia Vaccination: 2010 Review of Systems All Other Systems Reviewed And Are Negative: Yes Constitutional: Positive: Negative Skin: Positive: Rash Eyes: Positive: Negative ENT: Positive: Negative Respiratory: Positive: Negative Cardiovascular: Positive: Negative Gastrointestinal: Positive: Negative Genitourinary: Positive: Negative Motor: Positive: Negative Neurovascular: Positive: Negative Musculoskeletal: Positive: Negative Neurological: Positive: Negative Psychological: Positive: Negative Is Patient Immunocompromised?: No Physical Exam Triage Information Reviewed: Yes Appearance: Well-Appearing, Pain Distress, Obese Vital Signs: Initial Vital Signs Temp 97.1 F 02/14/19 20:08 Pulse 85 02/14/19 20:08 Resp 18 02/14/19 20:08 BP 118/70 02/14/19 20:08 Pulse Ox 95 02/14/19 20:08 Eye Exam: Normal ENT Exam: Normal Dental Exam: Normal Neck exam: Normal Respiratory Exam: Normal Cardiovascular Exam: Normal Abdominal Exam: Normal Bowel Sounds: Positive: Present Musculoskeletal Exam: Normal Neurological Exam: Normal Psychological Exam: Normal Skin: Positive: Rashes - eyrhtmic rash with eruptions extending from the left side of the lower back around the abdomen Course/Dx - Course Course Of Treatment: hx obtained, exam performed ,meds reviewed, treated for shingles - Differential Diagnoses - Skin Complaint Differential Diagnoses: Abscess, Tick Born Illness, Urticaria, Varicella Zoster - Diagnoses Provider Diagnosis: Shingles rash Discharge - Sign-Out/Discharge Documenting (check all that apply): Patient Departure All imaging exams completed and their final reports reviewed: No Studies - Discharge Plan Condition: Stable Disposition: HOME Patient Education Materials: Shingles (ED) Referrals: Arturo Coelho MD [Primary Care Provider] - Additional Instructions: 1. take the medication as prescribed 2. Use the norco for extreme pain 3. tylenol 1000 mg and ibuprofen 400 mg tab every 8 hours for pain 4. heat or ice as tolerated 5. Get plenty of rest and stay low stress 6. follow up with your doctor as needed. - Billing Disposition and Condition Condition: STABLE Disposition: Home
[2019-02-14] MEDS ORDERED: Acyclovir* 200 MG CAP PO ONE (21:04)
== END 2019-02-14 21:25 | disposition home or self-care (01) ==
LOC: UCEAST 20:03
DX: B02.9 Zoster without complications (principal); Z87.891 Personal history of nicotine dependence; Z88.0 Allergy status to penicillin; Z91.048 Other nonmedicinal substance allergy status
CPT/HCPCS: 99212; A9270-GY; G0463

== ENCOUNTER 2020-02-06 02:00 | Inpatient (IN) | payer MEDICARE, OTHER ==
--- NOTE | 2020-02-06 02:19 | ED ---
GI/ HPI - HPI Summary HPI Summary: Patient is a 69 y/o F presenting to the ED via EMS for a chief complaint of nausea, vomiting, and diarrhea that began around 20:00 on 02/05/20. Patient describes her vomit as having "red stuff" in it, but states she ate spaghetti earlier. She also reports chills, but denies any upper respiratory symptoms, including shortness of breath, cough, sore throat, or rhinorrhea. No aggravating or alleviating factors are reported. Patient has been social distancing other than going to [facility] in December 2019 with a friend. Her daughter goes grocery shopping for her, and both the patient and her daughter wear masks when they see each other. PMHx is significant for COPD. - History of Current Complaint Time Seen by Provider: 02/06/20 02:02 Stated Complaint: NAUSEA PER EMS Hx Obtained From: Patient Onset/Duration: Atraumatic, Still Present Timing: Constant Severity: Moderate Current Severity: Moderate Associated Signs and Symptoms: Positive: Nausea, Vomiting, Diarrhea, Chills. Negative: Cough Additional Signs & Symptoms: Positive: Recent Travel - December 2019 Aggravating Factor(s): Nothing Alleviating Factor(s): Nothing - Additional Pertinent History Primary Care Physician: [id number] - Allergy/Home Medications Allergies/Adverse Reactions: Allergies Allergy/AdvReac Type Severity Reaction Status Date / Time Penicillins Allergy Severe Hives/Diff. Verified 02/14/19 20:12 Breathing/I tching Adhesive Tape Allergy Intermediate redness/rash Verified 02/14/19 20:12 on skin under tape Home Medications: Home Medications Albuterol HFA INHALER* [Ventolin HFA Inhaler*] 2 puff INH Q4H PRN 02/13/17 [ History Confirmed 02/14/19] Budesonide/Formote 80/4.5(NF) [Symbicort 80/4.5 (NF)] 2 puff INH BID 02/13/17 [ History Confirmed 02/14/19] Cholecalciferol TAB* [Vitamin D TAB*] 2,000 unit PO QAM 02/13/17 [History Confirmed 02/14/19] Levothyroxine TAB* [Synthroid 125 MCG TAB*] 125 mcg PO 0800 02/13/17 [History Confirmed 02/14/19] Omeprazole CAP (NF) [Prilosec CAP* 20 MG] 20 mg PO QAM 02/13/17 [History Confirmed 02/14/19] Potassium Chlor TAB* [Potassium Chlor TAB 20 MEQ*] 20 meq PO QAM 02/13/17 [ History Confirmed 02/14/19] Tiotropium CAPSULE (NF) [Spiriva CAPSULE (NF)] 1 cap.inh INH QAM 02/13/17 [ History Confirmed 02/14/19] Zolpidem Tartrate [Ambien] 5 mg PO QPM PRN 12/15/18 [History Confirmed 02/14/19] HYDROcodone/ACETAMIN 5-325 MG* [[place] 5-325 TAB*] 1 tab PO TID #8 tab MDD 3 tab 02/14/19 [Rx] ValACYclovir (*) [Valtrex 1 GM(*)] 1 gm PO BID #13 tab 02/14/19 [Rx] PMH/Surg Hx/FS Hx/Imm Hx Previously Healthy: Yes Endocrine/Hematology History: Reports: Hx Thyroid Disease Respiratory History: Reports: Hx Asthma - r/t COPD, Hx Chronic Obstructive Pulmonary Disease (COPD) GI History: Reports: Hx Gastroesophageal Reflux Disease, Hx Hiatal Hernia Musculoskeletal History: Reports: Hx Arthritis - hands, back Sensory History: Reports: Hx Cataracts - bilat, Hx Contacts or Glasses Denies: Hx Hearing Aid Opthamlomology History: Reports: Hx Cataracts - bilat, Hx Contacts or Glasses - Cancer History Hx Chemotherapy: Yes - Surgical History Surgical History: Yes Surgery Procedure, Year, and Place: left breast removed for cancer 2010. gall bladder removed approx 2007. tubal ligation and appendectomy at 27 years old. 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 basil melanoma removed on left leg 2106. pre cancer skin removed from left forearm 11/2016. colonoscopy Hx Anesthesia Reactions: No Infectious Disease History: No Infectious Disease History: Denies: Traveled Outside the [place] in Last 30 Days - Family History Known Family History: Positive: Respiratory Disease - Social History Occupation: Retired Lives: Alone Alcohol Use: Rare Hx Substance Use: No Substance Use Type: Reports: None Hx Tobacco Use: Yes Smoking Status (MU): Former Smoker Amount Used/How Often: smoked 25 years 1ppd Review of Systems Positive: Chills Negative: Sore Throat, Nasal Discharge Negative: Shortness Of Breath, Cough Positive: Vomiting, Diarrhea, Nausea All Other Systems Reviewed And Are Negative: Yes Physical Exam - Summary Physical Exam Summary: Constitutional: Well-developed, Well-nourished, Alert. Appears anxious. Skin: Warm, Dry HENT: Normocephalic; Atraumatic Eyes: Conjunctiva normal Neck: Musculoskeletal ROM normal neck. (-) JVD, (-) Stridor, (-) Tracheal deviation Cardio: Rhythm regular, rate normal, Heart sounds normal; Intact distal pulses; The pedal pulses are 2+ and symmetric. Radial pulses are 2+ and symmetric. (-) Murmur Pulmonary/Chest wall: Effort normal. (-) Respiratory distress, (-) Wheezes, (-) Rales Abd: Soft, (-) tenderness, (-) Distension, (-) Guarding, (-) Rebound. LLQ pain. Musculoskeletal: (-) Edema Lymph: (-) Cervical adenopathy Neuro: Alert, Oriented x3 Psych: Mood and affect Normal Triage Information Reviewed: Yes Vital Signs Reviewed: Yes Procedures - Sedation Patient Received Moderate/Deep Sedation with Procedure: No Diagnostics - Laboratory Result Diagrams: 02/06/20 02:30 02/06/20 02:30 Lab Statement: Any lab studies that have been ordered have been reviewed, and results considered in the medical decision making process. - CT Abdomen/Pelvis CT CT Interpretation Completed By: Radiologist Summary of CT Findings: Abdomen/Pelvis CT IMPRESSION: No evidence of significant diverticulosis or acute diverticulitis. Mild nonspecific bowel wall thickening involving multiple loops of small and large bowel may reflect under distension or enterocolitis. Clinical correlation is required. Reviewed by Dr. Guerrero. GIGU Course/Dx - Course Course Of Treatment: Patient is a 69 y/o F presenting to the ED via EMS for a chief complaint of nausea, vomiting, and diarrhea that began around 20:00 on . Patient describes her vomit as having "red stuff" in it, but states she ate spaghetti earlier. She also reports chills, but denies any upper respiratory symptoms. Patient has been social distancing other than going to [facility] in December 2019 with a friend. Her daughter goes grocery shopping for her, and both the patient and her daughter wear masks when they see each other. PMHx is significant for COPD. On exam, LLQ pain, appears anxious. In the ED course, patient was given magnesium sulfate 1 gm IV, iodixanol 141 ml IV, and IV fluids. Laboratory abnormal findings: WBC 16.4, absolute neuts 15.5, absolute lymphs 0.3, BUN/Creatinine ratio 27.3, lactic acid 2.5, magnesium 1.7, AST 80, ALT 69, CRP 13.85. Abdomen/Pelvis CT IMPRESSION: No evidence of significant diverticulosis or acute diverticulitis. Mild nonspecific bowel wall thickening involving multiple loops of small and large bowel may reflect under distension or enterocolitis. Clinical correlation is required. At 05:32, Dr. Mikki Alonso reviewed the patients case and agrees to admit the patient to [facility] with a diagnosis of viral illness, hypoxia, vomiting, diarrhea, and COPD. Patient will be admitted with a diagnosis of viral illness, hypoxia, vomiting, diarrhea, and COPD. - Diagnoses Provider Diagnoses: Vomiting, Diarrhea, COPD (chronic obstructive pulmonary disease), Hypoxia, Viral illness - Physician Notifications Discussed Care Of Patient With: Mikki Alonso - At 05:32, Dr. Mikki Alonso reviewed the patients case and agrees to admit the patient to [facility] with a diagnosis of viral illness, hypoxia, vomiting, diarrhea, and COPD. Time Discussed With Above Provider: 05:32 Instructed by Provider To: Admit As Inpatient - Critical Care Time Critical Care Statement: Critical care time is provided exclusive of any time spent performing procedures. Discharge ED - Sign-Out/Discharge Documenting (check all that apply): Patient Departure - Admit - Discharge Plan Condition: Stable Disposition: ADMITTED TO [facility] Referrals: Arturo Coelho MD [Primary Care Provider] - - Billing Disposition and Condition Condition: STABLE Disposition: Admitted to [facility] - Attestation Statements Document Initiated by Scribe: Yes Documenting Scribe: Pily Sheriff Provider For Whom Scribe is Documenting (Include Credential): Ute Marshall MD Scribe Attestation: Pily Fernandes, scrtristaed for Ute Guerrero MD on 02/06/20 at 0644. Scribe Documentation Reviewed: Yes Provider Attestation: The documentation as recorded by the triniibPily bautista accurately reflects the service I personally performed and the decisions made by , Ute Guerrero MD Status of Scribe Document: Viewed
[2020-02-06] MEDS ORDERED: NS 0.9% 1000 ML** 1,000 ML IV ONE ×2 (02:23→03:44)
[2020-02-06 02:50] LABS: ABS Basophils 0.1 10^3/ul (0-0.2); ABS Lymphocytes 0.3 10^3/ul (1.0-4.8); ABS Monocytes 0.6 10^3/ul (0-0.8); ABS Neutrophils 15.5 10^3/ul (1.5-7.7); Eosinophil % 0.1 %; Hematocrit 45 % (35-47); Hemoglobin 14.8 g/dL (12.0-16.0); Lymphocyte % 1.6 %; Mean Corpuscular HGB Conc 33 g/dL (31-36); Mean Corpuscular Hemoglobin 32 pg (27-31); Mean Corpuscular Volume 96 fL (80-97); Mean Platelet Volume 8.3 fL (7.4-10.4); Nucleated Red Blood Cells % 0.2; Platelet Count 293 10^3/uL (150-450); Red Blood Count 4.69 10^6 /uL (3.70-4.87); Red Cell Distribution Width 14 % (10-15); White Blood Count 16.4 10^3/uL (3.5-10.8)
[2020-02-06 03:08] LABS: Albumin 3.7 g/dL (3.2-5.2); Albumin/Globulin Ratio 0.9 (1-3); BUN/Creatinine Ratio 27.3 (8-20); C Reactive Protein 13.85 mg/L (<8.01); Calcium 8.7 mg/dL (8.6-10.3); EGFR African American 90.5 (>60); EGFR Non-African American 74.8 (>60); Magnesium 1.7 mg/dL (1.9-2.7); Potassium 4.1 mmol/L (3.5-5.0); Total Bilirubin 0.5 mg/dL (0.2-1.0); Total Protein 7.7 g/dL (6.4-8.9)
[2020-02-06] MEDS ORDERED: Magnesium Sulfate 1 GM IV* 1 GM/100 ML BAG IV ONE (03:44)
[2020-02-06] MEDS ORDERED: Iodixanol* (CONTRAST) 320 MG/ML 100 ML SDV IV ONE (04:30)
[2020-02-06] MEDS ORDERED: Albuterol HFA INHALER* 8 gm MDI INH PRN (05:32)
[2020-02-06 05:33] LABS: Urine Appearance Clear; Urine Bilirubin Negative (Negative); Urine Blood Negative (Negative); Urine Color Yellow; Urine Glucose Negative (Negative); Urine Ketones Negative (Negative); Urine Nitrite Negative (Negative); Urine Protein Negative (Negative); Urine Urobilinogen Negative (Negative)
[2020-02-06] MEDS ORDERED: Morphine INJ* 2 MG/ML 1 ML SYRINGE (TWO MG - NEW SYRINGE VERSION) IV PRN (05:34)
[2020-02-06] MEDS ORDERED: Acetaminophen TAB* 325 MG PO PRN (05:34)
[2020-02-06 05:40] LABS: Urine Bacteria Absent (Absent); Urine Red Blood Cell Absent (Absent); Urine Squamous Epithelial Cell Present (Absent); Urine White Blood Cell Absent (Absent)
[2020-02-06 05:43] LABS: Urine Specific Gravity > 1.059 (1.010-1.030)
[2020-02-06] MEDS ORDERED: NS 0.9% 1000 ML** 1,000 ML IV SCH (05:45)
[2020-02-06] MEDS ORDERED: Magnesium Sulfate 2 GM IV* 2 GM/50 ML BAG IVPB ONE (06:18)
--- NOTE | 2020-02-06 06:21 | PN ---
Sepsis Event Evaluation Date of Evaluation: 02/06/20 Time of Evaluation: 06:30 Current Stage of Sepsis: Severe Sepsis Vital Signs - Last 12 Hours: Vital Signs - 12 hr Temp Pulse Resp BP Pulse Ox 02/06/20 06:00 115 21 95 02/06/20 05:02 127 105/66 92 02/06/20 05:01 130 90 02/06/20 04:18 20 02/06/20 03:01 131 25 93 02/06/20 03:00 127 22 104/73 90 02/06/20 02:53 127 23 89 02/06/20 02:28 127 99/75 95 02/06/20 02:25 121 96 02/06/20 02:02 100.2 F 120 28 99/75 96 Lactic Acid: 02/06/20 02:30 Lactic Acid 2.5 H* - Cardiopulmonary Exam Capillary Refill: Immediate Respiratory: Symmetrical Chest Expansion and Respiratory Effort, Clear to Auscultation Cardiovascular: NL Sounds; No Murmurs; No JVD, RRR, No Edema - Peripheral Pulse Exam Radial Pulses: Bilateral Normal Pedal Pulses: Bilateral Normal Posterior Tibial Pulse: Bilateral Normal Femoral Pulses: Bilateral Normal - Skin Exam Skin Exam: Normal Turgor - Sruthi Coma Scale Best Eye Response: 4 - Spontaneous Best Motor Response: 6 - Obeys Commands Best Verbal Response: 5 - Oriented Coma Scale Total: 15 Assess/Plan/Problems-Billing Assessment:
--- NOTE | 2020-02-06 07:32 | HP ---
CC: Dr. Coelho* HISTORY AND PHYSICAL: DATE OF ADMISSION: 02/06/20 CHIEF COMPLAINT: Nausea, vomiting, diarrhea. PRIMARY CARE PROVIDER: Dr. Coelho. HISTORY OF PRESENT ILLNESS: Batsheva Luke is a 69-year-old female with a history of COPD, breast cancer, who presented to the hospital complaining of sudden onset of nausea, vomiting, and diarrhea at 8 p.m. The patient stated that for dinner she had meat balls and sausage and she made the dinner herself. She lives in [facility] [place] but she had been practising social distancing and she had not been outside of her apartment apart from going to downstairs for a weekly outing to the nail saloon to have her nails done. Her food had been delivered by her daughter. The patient complains of mild abdominal discomfort in left upper quadrant. She had been having nausea, vomiting and diarrhea "at the same time." She describes her stool as liquid and brown. The last time she had diarrhea was approximately an hour and a half ago. She had not vomited for past couple of hours. She was noted to have incidental hypoxemia with oxygen levels at 88% on room air, when she came back from the CT[facility]. The CT showed gastroenteritis and she is going to be admitted with a diagnosis of gastroenteritis and placed on observation. PAST MEDICAL HISTORY: 1. Left breast cancer, status post mastectomy. 2. Hypothyroidism. 3. Obesity. 4. Gastroesophageal reflux disease. 5. Basal cell carcinoma. PAST SURGICAL HISTORY: Cataract surgery, cholecystectomy, left mastectomy. MEDICATIONS AT HOME: Include: 1. Ambien 5 mg at night p.r.n. 2. Spiriva 1 inhalation daily. 3. Potassium chloride 20 mEq daily. 4. Albuterol inhaler on a p.r.n. basis. 5. Levothyroxine 125 mcg daily. 6. Klor-Con 20 mEq daily. 7. Furosemide 40 mg daily. 8. Symbicort inhaler 2 puffs b.i.d. ALLERGIES: PENICILLIN and ADHESIVE TAPE. FAMILY HISTORY: Mother, sister, and brother with diabetes. Father and brother with skin cancer. Mother and daughter with breast cancer. SOCIAL HISTORY: The patient quit smoking in 2010 and has a history of 45-pack year smoking. She denies any alcohol or drug use. She denies eating any restaurant foods or take out recently. She is a and her surrogate decision maker is her daughter, Darian with phone number [phone]. The patient is a full code and lives in [facility] [place]. REVIEW OF SYSTEMS: Please see history of present illness. The patient developed fevers in the emergency department. She continues to have nausea. Denies any vomiting recently. Please also note history of present illness for further details. The patient denies any shortness of breath or cough. She has not had any fevers at home. She denies any sick contact. Other remaining 12 systems were reviewed with the patient and were otherwise negative. PHYSICAL EXAMINATION GENERAL: The patient is a very pleasant 69-year-old female, who is in no acute distress. The patient is alert and oriented x3. VITAL SIGNS: Blood pressure of 105/66, heart rate of 116 and regular, respiratory rate 21, oxygen saturation of 87% on 2 L oxygen by nasal cannula, temperature of 100.2. HEENT: Head: Atraumatic, normocephalic. Eyes: Pupils are equal and reactive to light and accommodation. Oropharynx clear. Mucosa moist. NECK: Supple. No JVD. No bruits bilaterally. RESPIRATORY: Distant breath sounds bilaterally. CARDIOVASCULAR: Regular rate and rhythm. No murmur. ABDOMEN: Soft, non-distended, obese, minimally tender in the left upper quadrant with no rebound, no guarding. Bowel sounds present in all 4 quadrants. EXTREMITIES: There is trace bilateral ankle edema. Pulses are +2 bilaterally. There is no clubbing or cyanosis. NEUROLOGIC: Speech clear. Cranial nerves II through XII grossly intact. Motor strength is 5/5 bilaterally. PSYCHIATRIC EVALUATION: Pleasant, cooperative with evaluation, oriented x3 with no evidence of anxiety or depression. DIAGNOSTIC STUDIES/LAB DATA: White blood cell count of 16.4, hemoglobin of 14.8, hematocrit of 45, and platelets of 293. Sodium 138, potassium 4.1, chloride 103, carbon dioxide 26, BUN 21, creatinine 0.77. Liver function tests showed AST of 80, ALT of 69, alkaline phosphatase of 78. The patient's troponin was 0. C reactive protein was 13.8. Lipase of 10. Lactic acid elevated at 2.5. Abdomen-pelvis CT, impression: "No evidence of significant diverticulosis or acute diverticulitis. Mild non-specific bowel wall thickening involving multiple loops of small and large bowel may reflect distension and colitis. Clinical correlation is required." Portable chest x-ray read by myself prior to the official radiologist report shows bibasilar atelectasis and no clearcut pneumonia. Once again, the official radiology report is still pending at the time of this dictation. ASSESSMENT AND PLAN: 1. The patient with sudden onset of nausea, vomiting and diarrhea, likely gastroenteritis. We will support the patient with intravenous hydration and place the patient on clear liquid diet. She is going to placed on overnight observation. 2. In regards to the patient's hypoxemia, I suspect she may have aspirated. She also has a history of chronic obstructive pulmonary disease and may have small hypoxemia at baseline. Nevertheless, the patient is going to be treated with ceftriaxone and Flagyl to cover for aspiration with the possibility of aspiration pneumonitis. So far, there is no evidence of infiltrates. 3. The patient was tested for COVID due to fever, leukocytosis, lymphopenia and elevated liver function test. She is going to be placed on COVID precautions. 4. For DVT prophylaxis, the patient is going to be placed on heparin subcutaneously. 5. Hypomagnesemia. She is going to be replaced with intravenous magnesium. 6. Please note that the patient is septic at admission likely due to gastroenteritis and I suspect that it is viral. She meets severe sepsis criteria and is in severe sepsis due to markedly elevated lactic acid above 2. 7. The patient's code status is full. Her surrogate is her daughter. TIME SPENT: Approximately 65 minutes was spent on the admission of this patient , more than half that time was spent [id number] with the patient during the interview and physical exam. [id number]/[facility] #: [id number] MTDD
[2020-02-06] MEDS ORDERED: Heparin VIAL(*) 5000 UNITS/ML VIAL (FIVE THOUSAND) SUBCUT SCH (08:00)
[2020-02-06] MEDS: NS 0.9% 1000 ML** 1,000 ML IV SCH ×2 (08:13→19:49)
[2020-02-06] MEDS: Levothyroxine TAB* 125 MCG TAB PO SCH (08:14)
[2020-02-06] MEDS: Pantoprazole TAB * 40 MG TAB PO SCH (08:14)
[2020-02-06] MEDS: Potassium Chlor TAB* 20 MEQ TAB.ER PO SCH (08:14)
[2020-02-06] MEDS ORDERED: HYDROcodone/ACETAMIN 5-325 MG* 1 TAB PO SCH (09:00)
[2020-02-06] MEDS: cefTRIAXone(*) 1 GM in NS 0.9% 50 ML* 50 ML IVPB SCH (09:29)
[2020-02-06] MEDS: HYDROcodone/ACETAMIN 5-325 MG* 1 TAB PO PRN (09:29)
[2020-02-06] MEDS: metroNIDAZOLE IV 500 MG/100ML* 500 MG/100 ML BAG IVPB SCH ×2 (10:36→17:56)
[2020-02-06] MEDS: SPIRIVA Respimat* (tiotropium) 2.5 mcg/inh Inhaler INH SCH (10:37)
[2020-02-06] MEDS: Mometasone/Formoter 100/5 MDI INH SCH ×2 (10:37→19:27)
[2020-02-06 12:34] LABS: Albumin/Globulin Ratio 0.9 (1-3); BUN/Creatinine Ratio 26.7 (8-20); Calcium 7.7 mg/dL (8.6-10.3); EGFR African American 120.7 (>60); EGFR Non-African American 99.7 (>60); Globulin 3.3 g/dL (2-4); Potassium 3.4 mmol/L (3.5-5.0); Total Bilirubin 0.3 mg/dL (0.2-1.0); Total Protein 6.3 g/dL (6.4-8.9)
[2020-02-06] MEDS ORDERED: NS 0.9% 250 ML* 250 ML IV ONE (13:00)
[2020-02-06] MEDS: Heparin VIAL(*) 5000 UNITS/ML VIAL (FIVE THOUSAND) SUBCUT SCH ×2 (13:03→22:13)
[2020-02-06] MEDS: Ondansetron INJ* 2 MG/ML VIAL IV PRN (14:41)
[2020-02-06] MEDS: Zolpidem TAB* 5 MG PO PRN (23:00)
[2020-02-07] MEDS: metroNIDAZOLE IV 500 MG/100ML* 500 MG/100 ML BAG IVPB SCH ×3 (01:27→15:58)
[2020-02-07] MEDS: Levothyroxine TAB* 125 MCG TAB PO SCH (05:25)
[2020-02-07] MEDS: Heparin VIAL(*) 5000 UNITS/ML VIAL (FIVE THOUSAND) SUBCUT SCH ×3 (05:26→22:11)
[2020-02-07] MEDS: Mometasone/Formoter 100/5 MDI INH SCH ×2 (08:23→19:34)
[2020-02-07] MEDS: SPIRIVA Respimat* (tiotropium) 2.5 mcg/inh Inhaler INH SCH (08:23)
[2020-02-07] MEDS: Potassium Chlor TAB* 20 MEQ TAB.ER PO SCH (08:49)
[2020-02-07] MEDS: Pantoprazole TAB * 40 MG TAB PO SCH (08:50)
[2020-02-07] MEDS: cefTRIAXone(*) 1 GM in NS 0.9% 50 ML* 50 ML IVPB SCH (08:51)
[2020-02-07] MEDS: NS 0.9% 1000 ML** 1,000 ML IV SCH ×2 (10:06→20:26)
[2020-02-07 12:38] LABS: ABS Eosinophils 0.1 10^3/ul (0-0.6); ABS Lymphocytes 1.1 10^3/ul (1.0-4.8); ABS Monocytes 0.6 10^3/ul (0-0.8); ABS Neutrophils 3.3 10^3/ul (1.5-7.7); Eosinophil % 1.2 %; Hematocrit 35 % (35-47); Hemoglobin 11.7 g/dL (12.0-16.0); Lymphocyte % 22.2 %; Mean Corpuscular HGB Conc 33 g/dL (31-36); Mean Corpuscular Hemoglobin 32 pg (27-31); Mean Corpuscular Volume 96 fL (80-97); Nucleated Red Blood Cells % 0.1; Platelet Count 200 10^3/uL (150-450); Red Cell Distribution Width 14 % (10-15); White Blood Count 5.2 10^3/uL (3.5-10.8)
[2020-02-07 12:53] LABS: BUN/Creatinine Ratio 13.6 (8-20); Calcium 7.2 mg/dL (8.6-10.3); EGFR Non-African American 101.7 (>60); Potassium 3.4 mmol/L (3.5-5.0)
[2020-02-07] MEDS: Benzocaine/Menthol LOZ* 1 LOZENGE PO PRN (15:53)
--- NOTE | 2020-02-07 17:56 | PN ---
Subjective Date of Service: 02/07/20 Interval History: reports improvement in diarrhea but c/o sore throat,sob,fatigue Objective Active Medications: Acetaminophen (Tylenol Tab*) 650 mg PO Q4H PRN PRN Reason: PAIN-MILD/TEMP >/= 100.4 Last Admin: 02/07/20 10:03 Dose: 650 mg Hydrocodone Bitart/Acetaminophen ([place] 5-325 Tab*) 1 tab PO TID PRN PRN Reason: pain moderate Last Admin: 02/06/20 09:29 Dose: 1 tab Albuterol (Ventolin Hfa Inhaler*) 2 puff INH Q4H PRN PRN Reason: SOB/ wheezing Heparin Sodium (Porcine) (Heparin Vial(*)) 5,000 units SUBCUT Q8HR [facility] Last Admin: 02/07/20 15:52 Dose: 5,000 units Sodium Chloride (Ns 0.9% 1000 Ml) 1,000 mls @ 100 mls/hr IV PER RATE [facility] Last Admin: 02/07/20 10:06 Dose: 100 mls/hr Metronidazole/Sodium Chloride (Flagyl 500 Mg Ivpb*) 500 mg in 100 mls @ 100 mls /hr IVPB Q8H [facility] Last Admin: 02/07/20 15:58 Dose: 100 mls/hr Ceftriaxone Sodium 1 gm/ (Sodium Chloride) 50 mls @ 100 mls/hr IVPB Q24H [facility] Last Admin: 02/07/20 08:51 Dose: 100 mls/hr Levothyroxine Sodium (Synthroid Tab*) 125 mcg PO 0600 [facility] Last Admin: 02/07/20 05:25 Dose: 125 mcg Mometasone Furoate/Formoterol Fumar (Dulera 100/5 Mdi*) 2 puff INH BID [facility] Last Admin: 02/07/20 08:23 Dose: 2 puff Morphine Sulfate (Morphine Inj (Syringe))*) 2 mg IV Q4H PRN PRN Reason: PAIN - SEVERE Ondansetron HCl (Zofran Inj*) 4 mg IV Q4H PRN PRN Reason: NAUSEA/VOMITING Last Admin: 02/06/20 14:41 Dose: 4 mg Pantoprazole Sodium (Protonix Tab*) 40 mg PO QAM [facility] Last Admin: 02/07/20 08:50 Dose: 40 mg Potassium Chloride (Klor Con Er Tab*) 20 meq PO QAM [facility] Last Admin: 02/07/20 08:49 Dose: 20 meq Throat Lozenges (Chloraseptic Deyanira*) 1 deyanira PO Q6H PRN PRN Reason: SORE THROAT Last Admin: 02/07/20 15:53 Dose: 1 deyanira Tiotropium [place] (Spiriva Respimat 2.5 Mcg) 2 puff INH QAM [facility] Last Admin: 02/07/20 08:23 Dose: 2 puff Zolpidem Tartrate (Ambien Tab*) 5 mg PO BEDTIME PRN PRN Reason: SLEEP Last Admin: 02/06/20 23:00 Dose: 5 mg Vital Signs - 8 hr 02/07/20 02/07/20 11:00 15:18 Temperature 97.5 F 96.9 F Pulse Rate 76 70 Respiratory 16 20 Rate Blood Pressure 95/48 98/57 (mmHg) O2 Sat by Pulse 96 98 Oximetry Oxygen Devices in Use Now: Nasal Cannula Ears/Nose/Mouth/Throat: NL Teeth, Lips, Gums Neck: NL Appearance and Movements; NL JVP Respiratory: Symmetrical Chest Expansion and Respiratory Effort Cardiovascular: RRR Abdominal: - - distended Extremities: No Edema Neurological: Alert and Oriented x 3 Result Diagrams: 02/07/20 11:21 02/07/20 11:21 Microbiology and Other Data: Microbiology 02/06/20 12:00 Aerobic Blood Culture - Preliminary Blood Venous No Growth Day 1 Anaerobic Blood Culture - Preliminary No Growth Day 1 02/06/20 03:15 Aerobic Blood Culture - Preliminary Blood Venous No Growth Day 1 Anaerobic Blood Culture - Preliminary No Growth Day 1 Assess/Plan/Problems-Billing Assessment: - Patient Problems (1) Nausea vomiting and diarrhea Current Visit: No Status: Acute Code(s): R11.2 - NAUSEA WITH VOMITING, UNSPECIFIED; R19.7 - DIARRHEA, UNSPECIFIED SNOMED Code(s): 1124429 Comment: - suspect gastroenteritis -diarrhea improved -will check cdiff rota virus stool culture -could be related to covid (2) Cough Current Visit: No Status: Acute Code(s): R05 - COUGH SNOMED Code(s): 27883353 Comment: -sob,lymphopenia,lft elevation,sore throat,abd symptoms -r/o covid (3) Electrolyte abnormality Current Visit: No Status: Acute Code(s): E87.8 - OTH DISORDERS OF ELECTROLYTE AND FLUID BALANCE, NEC SNOMED Code(s): 029493122 Comment: replaced potassium (4) Hypothyroid Current Visit: No Status: Chronic Code(s): E03.9 - HYPOTHYROIDISM, UNSPECIFIED SNOMED Code(s): 73100971 Comment: continue synthroid
[2020-02-08] MEDS: HYDROcodone/ACETAMIN 5-325 MG* 1 TAB PO PRN (00:48)
[2020-02-08] MEDS: Zolpidem TAB* 5 MG PO PRN (00:48)
[2020-02-08] MEDS: metroNIDAZOLE IV 500 MG/100ML* 500 MG/100 ML BAG IVPB SCH ×3 (00:49→16:19)
[2020-02-08] MEDS: Ondansetron INJ* 2 MG/ML VIAL IV PRN (00:53)
[2020-02-08] MEDS: Heparin VIAL(*) 5000 UNITS/ML VIAL (FIVE THOUSAND) SUBCUT SCH ×3 (05:37→21:22)
[2020-02-08] MEDS: Levothyroxine TAB* 125 MCG TAB PO SCH (05:37)
[2020-02-08 07:21] LABS: ABS Eosinophils 0.1 10^3/ul (0-0.6); ABS Lymphocytes 1.5 10^3/ul (1.0-4.8); ABS Monocytes 0.6 10^3/ul (0-0.8); ABS Neutrophils 3.9 10^3/ul (1.5-7.7); Hematocrit 36 % (35-47); Hemoglobin 12.4 g/dL (12.0-16.0); Lymphocyte % 24.4 %; Mean Corpuscular HGB Conc 34 g/dL (31-36); Mean Corpuscular Hemoglobin 33 pg (27-31); Mean Corpuscular Volume 95 fL (80-97); Mean Platelet Volume 8.2 fL (7.4-10.4); Platelet Count 206 10^3/uL (150-450); Red Blood Count 3.81 10^6 /uL (3.70-4.87); Red Cell Distribution Width 14 % (10-15); White Blood Count 6.2 10^3/uL (3.5-10.8)
[2020-02-08 07:31] LABS: BUN/Creatinine Ratio 10.9 (8-20); Calcium 7.8 mg/dL (8.6-10.3); EGFR African American 133.4 (>60); EGFR Non-African American 110.2 (>60); Potassium 3.6 mmol/L (3.5-5.0)
[2020-02-08] MEDS: SPIRIVA Respimat* (tiotropium) 2.5 mcg/inh Inhaler INH SCH (07:35)
[2020-02-08] MEDS: Mometasone/Formoter 100/5 MDI INH SCH ×2 (07:36→19:27)
[2020-02-08] MEDS: cefTRIAXone(*) 1 GM in NS 0.9% 50 ML* 50 ML IVPB SCH (08:40)
[2020-02-08] MEDS: NS 0.9% 1000 ML** 1,000 ML IV SCH ×2 (08:40→19:52)
[2020-02-08] MEDS: Pantoprazole TAB * 40 MG TAB PO SCH (08:40)
[2020-02-08] MEDS: Potassium Chlor TAB* 20 MEQ TAB.ER PO SCH (08:40)
--- NOTE | 2020-02-08 17:28 | PN ---
Subjective Date of Service: 02/08/20 Interval History: Feels exhausted. But diarrhea improved.SOB improving Objective Active Medications: Acetaminophen (Tylenol Tab*) 650 mg PO Q4H PRN PRN Reason: PAIN-MILD/TEMP >/= 100.4 Last Admin: 02/07/20 10:03 Dose: 650 mg Hydrocodone Bitart/Acetaminophen ([place] 5-325 Tab*) 1 tab PO TID PRN PRN Reason: pain moderate Last Admin: 02/08/20 00:48 Dose: 1 tab Albuterol (Ventolin Hfa Inhaler*) 2 puff INH Q4H PRN PRN Reason: SOB/ wheezing Heparin Sodium (Porcine) (Heparin Vial(*)) 5,000 units SUBCUT Q8HR [facility] Last Admin: 02/08/20 15:04 Dose: 5,000 units Sodium Chloride (Ns 0.9% 1000 Ml) 1,000 mls @ 100 mls/hr IV PER RATE [facility] Last Admin: 02/08/20 08:40 Dose: 100 mls/hr Metronidazole/Sodium Chloride (Flagyl 500 Mg Ivpb*) 500 mg in 100 mls @ 100 mls /hr IVPB Q8H [facility] Last Admin: 02/08/20 16:19 Dose: 100 mls/hr Ceftriaxone Sodium 1 gm/ (Sodium Chloride) 50 mls @ 100 mls/hr IVPB Q24H [facility] Last Admin: 02/08/20 08:40 Dose: 100 mls/hr Levothyroxine Sodium (Synthroid Tab*) 125 mcg PO 0600 [facility] Last Admin: 02/08/20 05:37 Dose: 125 mcg Mometasone Furoate/Formoterol Fumar (Dulera 100/5 Mdi*) 2 puff INH BID [facility] Last Admin: 02/08/20 07:36 Dose: 2 puff Morphine Sulfate (Morphine Inj (Syringe))*) 2 mg IV Q4H PRN PRN Reason: PAIN - SEVERE Ondansetron HCl (Zofran Inj*) 4 mg IV Q4H PRN PRN Reason: NAUSEA/VOMITING Last Admin: 02/08/20 00:53 Dose: 4 mg Pantoprazole Sodium (Protonix Tab*) 40 mg PO QAM [facility] Last Admin: 02/08/20 08:40 Dose: 40 mg Potassium Chloride (Klor Con Er Tab*) 20 meq PO QAM [facility] Last Admin: 02/08/20 08:40 Dose: 20 meq Throat Lozenges (Chloraseptic Deyanira*) 1 deyanira PO Q6H PRN PRN Reason: SORE THROAT Last Admin: 02/07/20 15:53 Dose: 1 deyanira Tiotropium [place] (Spiriva Respimat 2.5 Mcg) 2 puff INH QAM [facility] Last Admin: 02/08/20 07:35 Dose: 2 puff Zolpidem Tartrate (Ambien Tab*) 5 mg PO BEDTIME PRN PRN Reason: SLEEP Last Admin: 02/08/20 00:48 Dose: 5 mg Vital Signs - 8 hr 02/08/20 02/08/20 11:09 15:03 Temperature 97.3 F 98.1 F Pulse Rate 64 71 Respiratory 16 20 Rate Blood Pressure 92/65 93/51 (mmHg) O2 Sat by Pulse 93 94 Oximetry Oxygen Devices in Use Now: None Eyes: No Scleral Icterus Neck: NL Appearance and Movements; NL JVP Respiratory: Symmetrical Chest Expansion and Respiratory Effort Cardiovascular: RRR Abdominal: NL Sounds; No Tenderness; No Distention Extremities: No Edema Neurological: Alert and Oriented x 3 Result Diagrams: 02/08/20 06:53 02/08/20 06:53 Microbiology and Other Data: Microbiology 02/06/20 12:00 Aerobic Blood Culture - Preliminary Blood Venous No Growth Day 1 Anaerobic Blood Culture - Preliminary No Growth Day 1 02/06/20 03:15 Aerobic Blood Culture - Preliminary Blood Venous No Growth Day 1 Anaerobic Blood Culture - Preliminary No Growth Day 1 Assess/Plan/Problems-Billing Assessment: - Patient Problems (1) Nausea vomiting and diarrhea Current Visit: No Status: Acute Code(s): R11.2 - NAUSEA WITH VOMITING, UNSPECIFIED; R19.7 - DIARRHEA, UNSPECIFIED SNOMED Code(s): 7886364 Comment: - suspect gastroenteritis -diarrhea improved -will check cdiff rota virus stool culture -covid neg (2) Cough Current Visit: No Status: Acute Code(s): R05 - COUGH SNOMED Code(s): 78766515 Comment: -sob,lymphopenia,lft elevation,sore throat,abd symptoms -was checked for covid and neg -On aspiration pneumonia coverage with improvement (3) Electrolyte abnormality Current Visit: No Status: Acute Code(s): E87.8 - OTH DISORDERS OF ELECTROLYTE AND FLUID BALANCE, NEC SNOMED Code(s): 116500102 Comment: replaced potassium (4) Hypothyroid Current Visit: No Status: Chronic Code(s): E03.9 - HYPOTHYROIDISM, UNSPECIFIED SNOMED Code(s): 70394853 Comment: continue synthroid Status and Disposition: ivf,bp still soft.pt/ot
[2020-02-08] MEDS ORDERED: NS 0.9% 1000 ML** 1,000 ML IV ONE (23:40)
[2020-02-09] MEDS: metroNIDAZOLE IV 500 MG/100ML* 500 MG/100 ML BAG IVPB SCH ×2 (00:40→10:27)
[2020-02-09] MEDS: NS 0.9% 1000 ML** 1,000 ML IV SCH ×2 (00:44→08:55)
[2020-02-09] MEDS: Ondansetron INJ* 2 MG/ML VIAL IV PRN (01:35)
[2020-02-09] MEDS: Levothyroxine TAB* 125 MCG TAB PO SCH (05:08)
[2020-02-09] MEDS: Heparin VIAL(*) 5000 UNITS/ML VIAL (FIVE THOUSAND) SUBCUT SCH ×2 (05:08→13:55)
[2020-02-09 06:50] LABS: ABS Eosinophils 0.1 10^3/ul (0-0.6); ABS Lymphocytes 1.4 10^3/ul (1.0-4.8); ABS Monocytes 0.6 10^3/ul (0-0.8); ABS Neutrophils 4.2 10^3/ul (1.5-7.7); Eosinophil % 1.7 %; Hematocrit 36 % (35-47); Hemoglobin 12.1 g/dL (12.0-16.0); Lymphocyte % 21.8 %; Mean Corpuscular HGB Conc 33 g/dL (31-36); Mean Corpuscular Hemoglobin 32 pg (27-31); Mean Corpuscular Volume 96 fL (80-97); Mean Platelet Volume 8.4 fL (7.4-10.4); Nucleated Red Blood Cells % 0.1; Platelet Count 206 10^3/uL (150-450); Red Blood Count 3.76 10^6 /uL (3.70-4.87); Red Cell Distribution Width 14 % (10-15); White Blood Count 6.4 10^3/uL (3.5-10.8)
[2020-02-09 06:59] LABS: BUN/Creatinine Ratio 11.5 (8-20); Calcium 7.7 mg/dL (8.6-10.3); EGFR African American 118.4 (>60); EGFR Non-African American 97.8 (>60); Potassium 3.3 mmol/L (3.5-5.0)
[2020-02-09] MEDS: Mometasone/Formoter 100/5 MDI INH SCH (07:26)
[2020-02-09] MEDS: SPIRIVA Respimat* (tiotropium) 2.5 mcg/inh Inhaler INH SCH (07:27)
[2020-02-09] MEDS: cefTRIAXone(*) 1 GM in NS 0.9% 50 ML* 50 ML IVPB SCH (08:56)
[2020-02-09] MEDS: Potassium Chlor TAB* 20 MEQ TAB.ER PO SCH (09:04)
[2020-02-09] MEDS: Pantoprazole TAB * 40 MG TAB PO SCH (09:04)
[2020-02-09] MEDS: Benzocaine/Menthol LOZ* 1 LOZENGE PO PRN (09:12)
[2020-02-09] MEDS ORDERED: Potassium Chlor TAB* 20 MEQ TAB.ER PO ONE (09:30)
[2020-02-09 10:55] VITALS: BP 136/71
--- NOTE | 2020-02-09 20:39 | DS ---
DISCHARGE SUMMARY: DATE OF ADMISSION: 02/06/20 DATE OF DISCHARGE: 02/09/20 PRIMARY DIAGNOSES: 1. Gastroenteritis. 2. Colitis. 3. Aspiration pneumonitis. SECONDARY DIAGNOSES: 1. Left breast cancer, status post mastectomy. 2. Hypothyroidism. 3. Obesity. 4. Gastroesophageal reflux disease. 5. Basal cell carcinoma. HOSPITAL COURSE: A 69-year-old female with history of COPD, breast cancer who came in to the hospital with complaints of severe nausea, vomiting, and diarrhea. The patient reports that she had been practising social distancing and had not gone outside but had ordered some food from [employer]. The patient was also noted to be hypoxic with an oxygen level of 88%. The patient had a CT of the abdomen and pelvis in the ER, which showed no evidence of significant diverticulosis or diverticulitis, noted to have nonspecific bowel thickening involving multiple loops of small and large bowel reflecting possible enterocolitis. The patient also had a chest x-ray done in the ER which showed linear atelectasis of the left lung base. The patient was checked for COVID in light of her abdominal symptoms, hypoxia, fever, and lymphopenia and elevated liver function tests. The patient was initially placed on COVID precautions. Her COVID test later came back negative. The patient was also started on IV antibiotics including ceftriaxone and Flagyl to cover for the possibility of aspiration pneumonitis in the setting of vomiting and possible aspiration. She was also placed on these antibiotics to cover for colitis. The patient's condition improved with IV antibiotic therapy and the patient's stool was formed and diarrhea improved. COVID-19 test was noted to be negative. The patient was noted to be hypomagnesemic and this was replaced. The patient was noted to hypokalemic and this was replaced. The patient's lactic acid was initially elevated and this came down with hydration. The patient's blood pressure was also on the soft side initially, which improved with treatment of her infection and with administration of IV fluids. Vitals and labs noted to be stable at the time of discharge. LAB DATA: WBC 6.4, reduced from 16.4 at the time of admission; hemoglobin 12.1 ; hematocrit 36; platelets noted to be 206. Sodium 139, potassium 3.3 which was replaced, chloride 110, CO2 of 24, BUN 7, creatinine 0.6. COVID negative. PHYSICAL EXAM: Vitals: Temperature 98.8, pulse 65, respiratory rate 20, oxygen saturation 97% on room air, blood pressure 136/71. HEENT: NCAT. Heart: S1, S2 present. Regular. Lungs: Clear. Abdomen: Soft, nontender. Extremities: Some edema. Neuro: Alert. MEDICATION LIST: The patient is being discharged on Flagyl and ciprofloxacin for 3 more days to cover for colitis/gastroenteritis and in the setting of her aspiration possible. Home medications: 1. Flagyl 500 mg p.o. t.i.d. for 3 more days. 2. Ciprofloxacin 500 mg p.o. b.i.d. for 3 more days. 3. Ambien 5 mg p.o. at bedtime p.r.n. 4. Spiriva 1 cap inhalation daily. 5. Potassium chloride 20 mEq p.o. daily. 6. Omeprazole 20 mg p.o. daily. 7. Levothyroxine 125 mcg p.o. breakfast. 8. [place] 1 tab p.o. t.i.d. p.r.n. 9. Vitamin D 2000 units p.o. daily. 10. Calcipotriene 0.005% topical daily. 11. Symbicort 2 puffs inhalation b.i.d. 12. Albuterol inhalation p.r.n. 13. Tylenol 625 p.o. q.4 hours p.r.n. CONDITION AT TIME OF DISCHARGE: Stable. DISPOSITION: Home. FOLLOWUP: The patient to follow up with her PCP in a week. TIME SPENT: Total time spent on discharge is equal to 50 minutes. [id number]/CPS #: [id number] MTDD
[2020-02-09] MEDS ORDERED: Potassium Chlor TAB* 20 MEQ TAB.ER PO SCH (21:00)
== END 2020-02-09 16:20 | disposition home or self-care (01) | DRG 871 ==
LOC: ED 02:00 → MED 05:34 → OBSVTOIN 11:00 → MEDTELE 02-07 23:29
PROVIDERS: ADMIT Internal Medicine; ATTEND Internal Medicine
DX: A41.9 Sepsis, unspecified organism (principal); J69.0 Pneumonitis due to inhalation of food and vomit; Z68.42 Body mass index [BMI] 45.0-49.9, adult; J98.11 Atelectasis; I95.9 Hypotension, unspecified; K52.9 Noninfective gastroenteritis and colitis, unspecified; E03.9 Hypothyroidism, unspecified; C44.91 Basal cell carcinoma of skin, unspecified; E66.9 Obesity, unspecified; K21.9 Gastro-esophageal reflux disease without esophagitis; J44.9 Chronic obstructive pulmonary disease, unspecified; R09.02 Hypoxemia; E83.42 Hypomagnesemia; E87.6 Hypokalemia; R50.9 Fever, unspecified; D72.810 Lymphocytopenia; R05 Cough; D72.829 Elevated white blood cell count, unspecified; Z85.3 Personal history of malignant neoplasm of breast; Z79.51 Long term (current) use of inhaled steroids; Z79.899 Other long term (current) drug therapy; Z88.0 Allergy status to penicillin; Z91.048 Other nonmedicinal substance allergy status; Z83.3 Family history of diabetes mellitus; Z80.3 Family history of malignant neoplasm of breast; Z80.8 Family history of malignant neoplasm of other organs or systems; Z87.891 Personal history of nicotine dependence
CPT/HCPCS: 36415; 71045; 74177; 80048; 80053; 81003; 83605; 83690; 83735; 84484; 85025; 86140; 87040; 87045; 87046; 87077; 87425; 87635; 87899; 94640; 96361; 96374; 99284; A9270-GY; J0696; J1644; J2405; J3475; J3535; Q9967